=== PATIENT | male | born 1975 | race Caucasian/White ===

== ENCOUNTER 2019-10-15 21:01 | Emergency (ER) | payer SELFPAY ==
[2019-10-15] MEDS ORDERED: Ketorolac INJ* 30 MG/ML 1 ML VIAL IM ONE (21:21)
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
[2019-10-15] MEDS ORDERED: oxyCODONE/Acetamin 5/325 MG* TAB PO ONE (21:33)
[2019-10-16] MEDS ORDERED: Ibuprofen TAB* 800 MG PO ONE (02:42)
[2019-10-16] MEDS ORDERED: oxyCODONE TAB* 5 MG TAB PO ONE (03:18)
[2019-10-16 04:14] VITALS: BP 123/72
== END 2019-10-16 04:13 | disposition home or self-care (01) ==
LOC: ED 21:01
DX: M25.512 Pain in left shoulder (principal); M25.572 Pain in left ankle and joints of left foot
CPT/HCPCS: 96372; 99283; A9270-GY; J1885

== ENCOUNTER 2019-10-17 11:14 | Inpatient (IN) | payer BC ==
[2019-10-17] MEDS ORDERED: HYDROcodone/ACETAMIN 5-325 MG* 1 TAB PO ONE (11:28)
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
[2019-10-17 11:50] LABS: ABS Basophils 0.1 10^3/ul (0-0.2); ABS Eosinophils 0.1 10^3/ul (0-0.6); ABS Lymphocytes 1.3 10^3/ul (1.0-4.8); ABS Monocytes 0.7 10^3/ul (0-0.8); ABS Neutrophils 6.4 10^3/ul (1.5-7.7); Eosinophil % 1.4 %; Hematocrit 39 % (42-52); Hemoglobin 13.7 g/dL (14.0-18.0); Mean Corpuscular HGB Conc 35 g/dL (31-36); Mean Corpuscular Hemoglobin 33 pg (27-31); Mean Corpuscular Volume 93 fL (80-94); Mean Platelet Volume 9.5 fL (7.4-10.4); Platelet Count 151 10^3/uL (150-450); Red Blood Count 4.18 10^6 /uL (4.18-5.48); Red Cell Distribution Width 13 % (10-15); White Blood Count 8.7 10^3/uL (3.5-10.8)
[2019-10-17 12:04] LABS: ALT 28 U/L (7-52); AST 25 U/L (13-39); Albumin 4.2 g/dL (3.2-5.2); Albumin/Globulin Ratio 1.5 (1-3); Alkaline Phosphatase 25 U/L (34-104); Anion Gap 4 mmol/L (2-11); BUN/Creatinine Ratio 11.1 (8-20); Blood Urea Nitrogen 10 mg/dL (6-24); CO2 Carbon Dioxide 29 mmol/L (22-32); Calcium 9.2 mg/dL (8.6-10.3); Chloride 102 mmol/L (101-111); EGFR African American 112.5 (>60); Globulin 2.8 g/dL (2-4); Glucose 100 mg/dL (70-100); Potassium 4.1 mmol/L (3.5-5.0); Sodium 135 mmol/L (135-145)
[2019-10-17 12:41] LABS: HIV 4th Generation Nonreactive (Nonreactive)
[2019-10-17 12:54] LABS: Acetaminophen < 15 mcg/mL; Alcohol 10 mg/dL (<10); Salicylate < 2.50 mg/dL (<30)
[2019-10-17 13:10] LABS: TSH (Thyroid Stimulating Horm) 0.77 mcIU/mL (0.34-5.60)
[2019-10-17] MEDS ORDERED: Al Hydrox/Mg Hydrox/Simet LIQ* 30 ML UDC PO PRN (16:12)
[2019-10-17] MEDS: Acetaminophen TAB* 325 MG PO PRN (22:36)
[2019-10-18] MEDS: Vitamin THERAPEUTIC TAB PO SCH (08:34)
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
[2019-10-19] MEDS: Acetaminophen TAB* 325 MG PO PRN (05:55)
--- NOTE | 2019-10-19 10:02 | PN ---
Progress Note - Progress Note Date of Service: 10/19/19 Note: Please note that ankle fracture is surgical. Should remain NWB and immobilized in Cam Boot as Dr Mosley suggest and needs outpatient ortho follow up when released from .
[2019-10-19] MEDS ORDERED: Diazepam TAB(*) 5 MG PO ONE (10:14)
--- NOTE | 2019-10-19 13:35 | PN ---
Subjective - Subjective Date of Service: 10/19/19 Service Type: 59904 Hosp care 35 min high complexity Subjective: Solutions Specialist spoke with Dr Pascual regarding ortho consult. Patient completed CT scan and is indicated for surgical repair, likely 10/21 after edema is improved. Patient notified of above. He reports testicular pain and "orange" urine. UA wnl with exception of +urobilinogen. Patient's father, Holden Chowdary, phoned from [place] to give collateral. This was much similar to information he had given to admitting psychiatrist. He did report that Roni called a friend last week and told him he was going to jump into a gorge. Solutions Specialist updated him on patient's physical injuries and plan of care. During conversation with patient, he blames family members for all of his troubles. He speaks of them with derogatory names and that they "sent me to my grave." He states his is with someone else's baby and he blames her entirely for having an OOP against him. He goes on to describe the untoward effects of medications. He states that psychiatric medications: affected by ability to breathe and I had to choke myself to remind myself to breathe; decreased testosterone and turned bones brittle, causing fractures without injuries. He attributes his symptoms of mental illness to "the cloud from [place] over me for 2 months" when living in [facility]. He states that clozapine "destroyed my circadian rhythm" and that he was doing very well for 10 years on alternative therapies. Objective - General Observations Appearance: Malodorous, Unkempt Stature: Thin Posture: Other (See Comment) - lying down Eye Contact: Intense, Intermittent Behavior/Activity: Agitated - Interaction Observations Attitude Towards Examiner: Cooperative, Defensive, Hostile Stated Mood: Angry Affect: Restricted Speech Pattern/Tone: Pressured, Loud Volume Perception: WNL Thought Content: Paranoid, Grandiose Thought Process: Lethality: Paranoid Ideation Hallucination Type: Denies Delusion Type: Persecution, Grandeur - Cognitive Function Orientation: A&O x 4 Level of Consciousness: Alert Cognition: Impaired Attention/Concentration Estimated Intelligence: Normal Insight: Mostly Blames Others for Problems Judgment Within Normal Limits: No Ability to Make Reasonable Decisions: Serverely Impaired - Medication Compliance Cooperative with Inpatient Medication Regimen: Yes - Group Participation Participates in Group Activities: No Assessment - Assessment Merits Inpatient Hospitalization: For Immediate Safety, For Stabilization Inpatient DSM-V Dx: F25.0 Clinical Impression: 43yo wm with known history of schizophrenia and nonadherence to outpatient psychiatric treatment, who was living in [place] until filed OOP. Patient was brought to ED when family members called police due to concerns of his untreated mental illness. Two days prior, patient was seen in ED after sustaining a fall in a ravine thus fracturing an ankle fracture. Collateral information obtained denotes that may have been a suicide attempt. Patient merits hospitalization for immediate safety and stabilization. Plan - Plan Treatment Plan: Name: IRAM CHOWDARY Birthdate: 1975 [id number] continue acute intensive psychiatric treatment. L ankle CT obtained. Appreciate orthopaedic consult. Patient likely to have surgery on 10/22/19. add ibu, oxycodone/apap prn pain. add risperidone 1mg prn agitation. consider Invega Sustenna per patient consent. discharge planning to include family. Continued Medication Management: Start Medication Medications: Current Medications Acetaminophen (Tylenol Tab*) 650 mg PO Q4H PRN PRN Reason: for pain; or Temp >101 F Last Admin: 10/19/19 05:55 Dose: 650 mg Al Hydrox/Mg Hydrox/Simethicone (Maalox Plus*) 30 ml PO Q4H PRN PRN Reason: INDIGESTION Ibuprofen (Motrin Tab*) 600 mg PO Q6H PRN PRN Reason: PAIN - MILD Multivitamins (Theragran Tab*) 1 tab PO DAILY MIGUEL Last Admin: 10/18/19 08:34 Dose: Not Given - Discharge Plan Discharge Plan: Inpatient Hospitalization
[2019-10-19] MEDS: Vitamin THERAPEUTIC TAB PO SCH (13:46)
[2019-10-19] MEDS: Ibuprofen TAB* 600 MG PO PRN (13:51)
[2019-10-19] MEDS ORDERED: risperiDONE-M * 1 MG TAB.ORADIS PO PRN (15:05)
[2019-10-19 15:30] LABS: Urine Appearance Turbid; Urine Bilirubin Negative (Negative); Urine Blood Negative (Negative); Urine Color Yellow; Urine Glucose Negative (Negative); Urine Ketones Negative (Negative); Urine Nitrite Negative (Negative); Urine Protein Negative (Negative); Urine Specific Gravity 1.019 (1.010-1.030); Urine Urobilinogen Positive (Negative)
--- NOTE | 2019-10-19 17:07 | CONS ---
CONSULTATION REPORT: DATE OF CONSULT: 10/19/19 ATTENDING ORTHOPEDIC PROVIDER: Dr. Alfred Harkins. CHIEF COMPLAINT: Right ankle pilon fracture. HISTORY OF PRESENT ILLNESS: The patient is a 43-year-old male who presented to [facility] on first on 10/15/19 where he was identified to have a right ankle fracture with instruction to follow up with Orthopedics within 3 days. He returned to the emergency room on 10/17/19 due to lack of support as an outpatient and was admitted to [facility] service. Fracture occurred when the patient fell 20 feet down a ravine. On ER presentation he reported decreased range of motion in the right shoulder and right ankle due to pain. He also reported right posterior rib pain associated with the fall. Today his right ankle pain is well tolerated in CAM boot. No longer has right shoulder pain, continues to complain of right posterior rib pain and also "coccyx pain". He did not lose consciousness, hit his head, have shortness of breath, dizziness, chest pain, or abdominal pain. The patient has not had surgery in the past. He is unsure if he has any family members who have had anesthesia. He has not had a heart attack, stroke or blood clot. PAST MEDICAL HISTORY: Significant for untreated mental illness. The patient has not been taking his medications. PAST SURGICAL HISTORY: None. ALLERGIES: HALDOL, OLANZAPINE, PALIPERIDONE. SOCIAL HISTORY: The patient ambulates independently without an assistive device at baseline. He is and previously lived in a house with his , though for undisclosed reasons he has been living in his car. The patient is a former smoker. REVIEW OF SYSTEMS: General: Denies any fever, chills, or recent illness. HEENT: The patient denies any head trauma, headache, changes in vision. Cardiac : Denies any chest pain. No history of heart attack. Respiratory: No shortness of breath. No cough. GI: No nausea, vomiting, diarrhea or abdominal pain. : No dysuria. Musculo-skeletal: Positive for pain of the right lower extremity as well as right posterior ribs. Neuro: No decreased sensation in bilateral upper or lower extremities. PHYSICAL EXAM: Vital Signs: Temperature 98.8, pulse rate 78, respiratory rate 14, oxygen saturation 99%, and blood pressure 128/69. General: Well appearing , no acute distress. HEENT: Normocephalic, atraumatic. Extraocular movements are intact. Neck: No C-spine tenderness. Cardiac: S1, S2. Respiratory: Clear to auscultation bilaterally. Abdomen: Bowel sounds normoactive, nontender. No guarding. No rigidity. Musculoskeletal: Bilateral upper extremities and left lower extremity; skin envelope is intact. He has no tenderness to palpation, able to flex and extend at all joints without any pain. The patient reports right-sided back pain. He has no tenderness over the scapula. He does have tenderness over the ribs with no obvious step-off. Right lower extremity: Boot removed, the patient has significant blistering over the lateral aspect of the ankle with moderate to severe swelling and ecchymosis. Unable to wrinkle the skin about the ankle. he is able to flex and extend at the MTPs. Sensation is intact to light touch distally. Capillary refill less than 2 seconds distally. DIAGNOSTIC STUDIES/LAB DATA: White blood cell count 8.7, hemoglobin 13.7, hematocrit 39, platelets 151. Sodium 135, potassium 4.1, creatinine 0.90. CT scan of the right lower extremity demonstrates a pilon fracture of the right ankle. Right shoulder x-ray, no acute osseous injury. ASSESSMENT: Pilon fracture, right ankle. PLAN: The patient will be nonweightbearing. He will remain in Cam boot. He can use crutches to ambulate as needed though he should keep the extremity strictly elevated and iced as much as possible. Plan is for ORIF right pilon fracture on 10/22/[address] Alfred Harkins. Ordered coccyx/sacrum and CXR to eval for further injuries. GISELLE COX [id number]/[facility] #: [id number] [facility]PITAL CENTERHernesto
[2019-10-19 17:18] LABS: Urine Benzodiazepine Screen Presumptive Positive (None Detect); Urine Opiates Screen None Detected (None Detect)
[2019-10-19 19:30] LABS: Urine Buprenorphine Screen None Detected (None Detect); Urine Fentanyl Screen None Detected (None Detect); Urine Hydrocodone Screen None Detected (None Detect)
[2019-10-19] MEDS: oxyCODONE/Acetamin 5/325 MG* TAB PO PRN (22:59)
[2019-10-20] MEDS: Vitamin THERAPEUTIC TAB PO SCH (10:15)
[2019-10-20] MEDS: oxyCODONE/Acetamin 5/325 MG* TAB PO PRN ×2 (10:43→22:37)
--- NOTE | 2019-10-20 12:38 | PN ---
Progress Note - Progress Note Date of Service: 10/20/19 SOAP: Subjective: [The pt was seen this am sitting in bed. He state that his pain is well managed while being in the boot. The pt states that he has been up and about with crutches. He denies any chest pain, sob, nausea or vomiting. ] Objective: [General: pt is alert and oriented x3. NAD MSK, RLE: The pt is in a CAM walker boot. He does have pain at the lateral and medial malleolus. He can wiggle his toes. He does have 2 blood filled blisters present on the lateral side. He has diffuse bruising about the ankle. The pt has full sensation and we can wrinkle his skin. ] Vital Signs Temp 98.8 F 10/19/19 08:00 Pulse 78 10/19/19 08:00 Resp 15 10/20/19 11:23 BP 128/69 10/19/19 08:00 Pulse Ox 99 10/19/19 08:00 Assessment: [Right ankle pilon fracture ] Plan: [The pt will continue with NWB in the CAM boot He will continue to keep his ankle elevated Will speak with the provider to discus his s3 possible fracture - [facility]/2019]
[2019-10-20] MEDS: Docusate CAP* 100 MG PO PRN ×2 (13:08→17:38)
--- NOTE | 2019-10-20 13:46 | PN ---
Subjective - Subjective Date of Service: 10/20/19 Service Type: 49670 Hosp care 35 min high complexity Subjective: Per Ortho recommendations, development writer consulted with neurosurgeon, Dr Huerta. No surgical interventions, necessary. Patient may f/u with sports medicine in outpatient setting. Terminal Operations Manager received message from patient's father, Holden Quiros, and returned call to [phone]. Mr Quiros expressed concerns about patient being discharged without psychiatric stabilization. We discussed plan of care in the next few days and potential for pursuing Treatment Over Objection. He reported feeling much relief after discussion. Will continue with daily updates from development writer. Patient noted to ambulate about unit NWB on L foot, wearing CAM boot and utilizing crutches. At time of interview, pt lying in bed with leg elevated. Upon presentation, patient states "I'm glad you came in, I was just starting to panic." He states he is frustrated about lack of human contact because everyone he has called in the last 6 weeks isn't returning his calls. He speaks of various topics,places he has lived, disdain for [facility], and desire to live [place] own [place] (afterwhich he jokingly tells development writer "you're not invited"). Patient goes on to blame his mother and for sabotaging him and ruining his life. I gently inquire about him being overheard being verbally aggressive to his mother on the phone. He rants for some time about she and his needing to know why is so angry with them. He also states that his father isn't returning his calls. We discuss that his father is worried and afraid to talk to him when he is speaking angrily to everyone. By the end of the conversation, patient is calm and cooperative. Patient is encouraged to rest and stay hydrated, given water pitcher. Objective - General Observations Appearance: Unkempt Stature: Thin Posture: WNL Eye Contact: Avoidant Behavior/Activity: Agitated - Interaction Observations Attitude Towards Examiner: Cooperative, Defensive Stated Mood: Expansive, Angry Affect: Labile Speech Pattern/Tone: Rambling, Pressured Thought Process: Circumstantial, Over Inclusive Perception: WNL Thought Content: Paranoid, Grandiose Thought Process: Lethality: Paranoid Ideation Hallucination Type: Denies Delusion Type: Persecution, Grandeur - Cognitive Function Orientation: A&O x 4 Level of Consciousness: Alert Cognition: Impaired Attention/Concentration Estimated Intelligence: Normal Insight: Mostly Blames Others for Problems Judgment Within Normal Limits: No Ability to Make Reasonable Decisions: Serverely Impaired - Medication Compliance Cooperative with Inpatient Medication Regimen: Partial - Group Participation Participates in Group Activities: No Assessment - Assessment Merits Inpatient Hospitalization: For Immediate Safety, For Stabilization Inpatient DSM-V Dx: F25.0 Clinical Impression: 43yo wm with known history of schizophrenia and nonadherence to outpatient psychiatric treatment, who was living in [place] until filed OOP. Patient was brought to ED when family members called police due to concerns of his untreated mental illness. Two days prior, patient was seen in ED after sustaining a fall in a ra[place] thus fracturing an ankle fracture. Collateral information obtained denotes that may have been a suicide attempt. Patient merits hospitalization for immediate safety and stabilization. Plan - Plan Treatment Plan: Name: IRAM QUIROS Birthdate: 1975 [id number] continue acute intensive psychiatric treatment. Appreciate orthopaedic consult. Patient to have surgery on morning of 10/22/19, NPO after midnight prior to. Consult with neurosurgery due to S3 vertebral fx. No further recommendations. patient may follow up with sports medicine via outpatient. add laxative and stool softener prn constipation. continue R.I.C.E., ibu, oxycodone/apap prn pain. continue risperidone 1mg prn agitation. consider Invega Sustenna per patient consent. discharge planning to include family. Continued Medication Management: Consider Medication Medications: Current Medications Acetaminophen (Tylenol Tab*) 650 mg PO Q4H PRN PRN Reason: for pain; or Temp >101 F Last Admin: 10/19/19 05:55 Dose: 650 mg Al Hydrox/Mg Hydrox/Simethicone (Maalox Plus*) 30 ml PO Q4H PRN PRN Reason: INDIGESTION Docusate Sodium (Colace Cap*) 100 mg PO BID PRN PRN Reason: CONSTIPATION Ibuprofen (Motrin Tab*) 600 mg PO Q6H PRN PRN Reason: PAIN - MILD Last Admin: 10/19/19 13:51 Dose: 600 mg Multivitamins (Theragran Tab*) 1 tab PO DAILY MIGUEL Last Admin: 10/20/19 10:15 Dose: 1 tab Oxycodone/Acetaminophen (Percocet 5/325 Tab*) 1 tab PO Q8H PRN PRN Reason: PAIN - SEVERE Last Admin: 10/20/19 10:43 Dose: 1 tab Polyethylene Glycol/Electrolytes (Miralax (17 Gm Dose Rajesh)) 17 gm PO DAILY PRN PRN Reason: CONSTIPATION Risperidone (Risperdal-M Tab *) 1 mg PO BID PRN; Protocol PRN Reason: AGITATION/ANXIETY - Discharge Plan Discharge Plan: Inpatient Hospitalization
[2019-10-20] MEDS: Ibuprofen TAB* 600 MG PO PRN (17:09)
[2019-10-20] MEDS: Polyethylene Glycol 3350* 17 GM PACKET PO PRN (17:38)
[2019-10-21] MEDS: oxyCODONE/Acetamin 5/325 MG* TAB PO PRN ×2 (05:10→19:02)
[2019-10-21] MEDS: Ibuprofen TAB* 600 MG PO PRN ×2 (05:10→10:50)
[2019-10-21] MEDS: Polyethylene Glycol 3350* 17 GM PACKET PO PRN (10:49)
[2019-10-21] MEDS: Vitamin THERAPEUTIC TAB PO SCH (10:49)
[2019-10-21] MEDS: Docusate CAP* 100 MG PO PRN (10:49)
[2019-10-21] MEDS ORDERED: Buffered Lidocaine 1% SYRIN* 1 ML/SYRINGE INTRADERM ONE (10:54)
--- NOTE | 2019-10-21 11:25 | PN ---
Subjective - Subjective Date of Service: 10/21/19 Service Type: 64277 Hosp care 25 min moderate complexity Subjective: Patient lying in bed with R leg elevated and ice pack in place. He reports being encouraged by ortho team to remain off of leg and to keep elevated as much as possible to prepare for surgical repair tomorrow. We discuss possibility of use of unit tablet for entertainment. I will refer to Rec Therapy for parameters of use. Patient is pleasant upon approach, euthymic with bright affect. He states he had a good conversation with his father via phone. Patient states "I wish I had a home" in a jovial manner. He agrees to postpone discharge planning until after surgery. Objective - General Observations Appearance: Well Groomed Stature: Thin Posture: Other (See Comment) - lying down Eye Contact: Average Behavior/Activity: WNL - Interaction Observations Attitude Towards Examiner: Cooperative Stated Mood: Euthymic Affect: Bright Speech Pattern/Tone: Clear, Appropriate, Normal Volume Thought Process: Circumstantial Perception: WNL Thought Content: Paranoid Thought Process: Lethality: Paranoid Ideation Hallucination Type: Denies Delusion Type: Persecution, Grandeur - Cognitive Function Orientation: A&O x 4 Level of Consciousness: Alert Cognition: WNL Estimated Intelligence: Normal Insight: Mostly Blames Others for Problems Judgment Within Normal Limits: No Ability to Make Reasonable Decisions: Serverely Impaired - Medication Compliance Cooperative with Inpatient Medication Regimen: Partial - Group Participation Participates in Group Activities: Partial Assessment - Assessment Inpatient DSM-V Dx: F25.0 Clinical Impression: 43yo wm with known history of schizophrenia and nonadherence to outpatient psychiatric treatment, who was living in [place] until filed OOP. Patient was brought to ED when family members called police due to concerns of his untreated mental illness. Two days prior, patient was seen in ED after sustaining a fall in a [place] thus fracturing an ankle fracture. Collateral information obtained denotes that may have been a suicide attempt. Patient merits hospitalization for immediate safety and stabilization. Plan - Plan Treatment Plan: Name: IRAM QUIROS Birthdate: 1975 [id number] continue acute intensive psychiatric treatment. Appreciate orthopaedic consult. Patient to have surgery on morning of 10/22/19, NPO after midnight prior to. Consult with neurosurgery due to S3 vertebral fx. No further recommendations. patient may follow up with sports medicine via outpatient. add laxative and stool softener prn constipation. continue R.I.C.E., ibu, oxycodone/apap prn pain. continue risperidone 1mg prn agitation. consider Invega Sustenna per patient consent. discharge planning to include family. Continued Medication Management: Consider Medication Medications: Current Medications Acetaminophen (Tylenol Tab*) 650 mg PO Q4H PRN PRN Reason: for pain; or Temp >101 F Last Admin: 10/19/19 05:55 Dose: 650 mg Al Hydrox/Mg Hydrox/Simethicone (Maalox Plus*) 30 ml PO Q4H PRN PRN Reason: INDIGESTION Docusate Sodium (Colace Cap*) 100 mg PO BID PRN PRN Reason: CONSTIPATION Last Admin: 10/21/19 10:49 Dose: 100 mg Lactated Ringer's (Lactated Ringers 1000 Ml Bag*) 1,000 mls @ 125 mls/hr IV PER RATE MIGUEL Ibuprofen (Motrin Tab*) 600 mg PO Q6H PRN PRN Reason: PAIN - MILD Last Admin: 10/21/19 10:50 Dose: 600 mg Multivitamins (Theragran Tab*) 1 tab PO DAILY MIGUEL Last Admin: 10/21/19 10:49 Dose: 1 tab Oxycodone/Acetaminophen (Percocet 5/325 Tab*) 1 tab PO Q8H PRN PRN Reason: PAIN - SEVERE Last Admin: 10/21/19 05:10 Dose: 1 tab Polyethylene Glycol/Electrolytes (Miralax (17 Gm Dose Rajesh)) 17 gm PO DAILY PRN PRN Reason: CONSTIPATION Last Admin: 10/21/19 10:49 Dose: 17 gm Risperidone (Risperdal-M Tab *) 1 mg PO BID PRN; Protocol PRN Reason: AGITATION/ANXIETY - Discharge Plan Discharge Plan: Inpatient Hospitalization
--- NOTE | 2019-10-21 13:29 | PN ---
Progress Note - Progress Note Date of Service: 10/21/19 SOAP: Subjective: Pt seen at bedside today for evaluation of right leg fracture. States that he is doing ok, boot is too uncomfortable to wear and prefers nothing on leg while laying in bed while elevating. Denies pain at rest. Denies CP/SOB, f/c, n/v. Objective: Vital Signs: Temp Pulse Resp BP Pulse Ox 99.4 F 61 14 112/60 99 10/21/19 08:26 10/21/19 08:26 10/21/19 10:52 10/21/19 08:26 10/21/19 08:26 Gen: A&Ox3, NAD at rest laying in bed RLE: Large fracture blisters intact to posterolateral ankle. Moderate ecchymosis and swelling to ankle. +f/e at MTPs. N/V intact Assessment: Right ankle pilon fracture Plan: NPO after MN for ORIF right ankle tomorrow Strict elevation and ice as kita wrap not allowed
[2019-10-22] MEDS: oxyCODONE/Acetamin 5/325 MG* TAB PO PRN (04:37)
[2019-10-22] MEDS ORDERED: Lactated Ringers 1000 ML Bag* 1,000 ML IV SCH (06:00)
[2019-10-22] MEDS ORDERED: ceFAZolin 2 GM PREMIX in ORs 2 GM/50 ML BAG ONE (08:56)
[2019-10-22] MEDS ORDERED: Bupivacaine 0.5%* 50 ML MDV VIAL ONE (08:57)
[2019-10-22] MEDS: Vitamin THERAPEUTIC TAB PO SCH (09:01)
[2019-10-22 10:00] VITALS: BP 123/73
--- NOTE | 2019-10-22 11:33 | DS ---
DATE OF ADMISSION: 10/17/2019. DATE OF DISCHARGE: 10/22/2019. SUPERVISING PSYCHIATRIST: Dr. Albert Gómez* (dictated by DEVAUGHN Marquez) . DIAGNOSES: Schizophrenia, paranoid type; cannabis use disorder. CONDITION ON DISCHARGE: Guarded. The patient is being discharged to Surgical Services to complete ORIF of the right ankle with the expectation he will be readmitted to the Behavioral Services Unit on 9.39 status after completion of surgery. The patient is discharged to Surgical Services. MENTAL STATUS EXAM: Jeison is a 43-year-old, white male, disheveled, thin- framed. He has alternately avoidant or intense eye contact. He presents as guarded, irritable, and superficially cooperative. He is minimally cooperative with staff in regards to preparation for surgery with de-escalation. By psychiatric nursing staff, he is cooperative and agreeable. Thought content is positive for paranoid ideations. Thought process is circumstantial and disorganized. He verbalizes paranoid and persecutory delusions. Insight and judgment are limited. Impulse control is poor. He is alert and oriented times three. Concentration is poor. Attention and memory are fair. Fund of knowledge is limited. Intelligence is estimated to be in normal average range. DISCHARGE INSTRUCTIONS GIVEN TO THE PATIENT: A. Medications: He will resume on medications per Surgical team, primarily for pain control. The patient is afforded Risperidone prn for agitation, but has been refusing this. B. Diet: NPO currently. C. Activity: Nonweightbearing right leg. Encouraged to remain in hospital bed with leg elevated. Tobacco cessation is provided to the patient. Pending labs per Surgical team. D. Follow-care: The patient will return to the Adult Behavioral Services Unit on involuntary status. E. Substance use follow-up: Not applicable. HOSPITAL COURSE - PART A: Reason for admission: The patient presented to the emergency department on 10/17/2019 due to family concerns about his safety. The family had contacted 911 due to the patient's inability to care for himself and making comments to others about suicidal ideation. On October 14, the patient presented to the emergency department after falling in a ravine and sustaining multiple physical injuries. He reported that he was defecating in a gorge and fell from a height. He was discharged from the ED after receiving a CAM boot. When he returned on the , he had been found on the [facility] wandering about. Collateral information obtained from the family that the patient had a diagnosis of paranoid schizophrenia. He had been doing well on long-acting injectable Invega Sustenna until stopping it approximately five to six months ago where he decompensated considerably. The patient has since been aggressive towards his and she has an order of protection. He and his were living in [place] and the patient reached out to family members who were not willing to support him financially without his agreement to be on medications. He now takes this as being abandoned by his family and blames them for all of his problems. According to his father, he is very masterful at covering up his symptoms. He also had reached out to a friend on the day of his fall in the ravine and reportedly had suicidal ideation and a plan to jump into a gorge. Upon presentation on the day of admission to the Psychiatric Unit, he verbalized ideas of reference, paranoid and persecutory delusions. He told the admitting psychiatrist that because he is Zoroastrian, he had to leave [place] due to the K targeting him. He also reported that his father and mother are trying to control him and will not help him unless he takes medications. HOSPITAL COURSE - PART B: Psychiatric treatment rendered: The patient was admitted to the Adult Behavioral Services Unit on involuntary status. Code status was full. He was placed on 15 minute checks for safety. We reached out to Ortho and obtained a CT of his right ankle due to the severity of multiple fractures. He was deemed appropriate for emergency surgery. The patient was afforded pain medication and prophylaxis for constipation. He was afforded Risperidone prn for agitation, but did not accept this. He is adamantly opposed to psychiatric medications and has various delusions about medication treatment history as well as impaired insight into psychiatric diagnosis. Ortho obtained a sacrum and coccyx x-ray which denoted mild cortical abnormality near S3. Tv News Director was encouraged to reach out to Neurosurgery which I did and discussed with the office of Dr. Huerta who indicated that surgery was not indicated. He was recommended to follow-up with Sports Medicine after discharge. The patient's current insurance is O of [email or web address] ; therefore, any services in [place] are not covered unless it is an emergency. The patient was notified of the above and recommendation to remain hospitalized on involuntary status until outpatient services can be arranged post surgery and post psychiatric stabilization. We have been in contact with his father per patient consent who is very concerned about his treatment. The patient has a recent history of brief psychiatric hospitalization in [place], [place] I believe. He was admitted for a 72 hour hold and discharge when he was readmitted to [facility] at the beginning of this month. He presented well in a hearing and was deemed appropriate for discharge by the local court. We discussed at length the process of involuntary admission in this state and pursuing treatment over objection to which the father is in agreement with. During conversation with the patient, he is calm and cooperative, especially when discussing current medical recommendations. When we discuss his psychiatric history, he is quickly defensive, irritable, and has much derogatory statements about his family and for sabotaging him and ruining his life. He is overheard being verbally aggressive to his mother on the phone. He rants for some time that his mother and are needing to know why he is so angry with them. He has poor insight into his psychiatric history. He denies previous suicide attempts that have been well-documented. He reports that various things have caused mental instability, including the mercury clouds from [place] after 04[place]08. The night before surgery, the patient was agitated, demanding to be discharged and this was after we had already discussed that it was in his best interest for him to remain psychiatrically hospitalized, not only for safety, but for healthcare coverage. On the morning prior to discharging to Surgery, he was irritable, agitated and balking at going to surgery. He demanded to be discharged after surgery. Due to his recent history, it is imperative that he return to the Behavioral Services Unit on involuntary status for his own safety. We are looking forward to collaboration with the Ortho team after his surgery and post anesthesia care. DEVAUGHN MARQUEZ [id number]/CPS #: [id number] SHERRELL
== END 2019-10-22 08:45 | disposition short-term general hospital (02) | DRG 750 ==
LOC: ED 11:14 → BSU 16:12 → ED 17:09
PROVIDERS: ADMIT Psychiatry & Neurology Psychiatry; ATTEND Psychiatry & Neurology Psychiatry
DX: F20.0 Paranoid schizophrenia (principal); F12.90 Cannabis use, unspecified, uncomplicated; S82.871A Displaced pilon fracture of right tibia, initial encounter for closed fracture; S70.01XA Contusion of right hip, initial encounter; S40.011A Contusion of right shoulder, initial encounter; W17.89XA Other fall from one level to another, initial encounter; Y92.89 Other specified places as the place of occurrence of the external cause; Z81.8 Family history of other mental and behavioral disorders; Z81.1 Family history of alcohol abuse and dependence; Z91.14 Patient's other noncompliance with medication regimen; Z88.8 Allergy status to other drugs, medicaments and biological substances; Z87.891 Personal history of nicotine dependence
CPT/HCPCS: 36415; 71046; 72220; 80053; 80307; 80320; 80329; 81003; 84443; 85025; 87389; 93005; 99222; 99232; 99233; 99238; 99284; A9270-GY; G0480; J0690; J3490

== ENCOUNTER 2019-10-22 08:55 | Day surgery (SDC) | payer BC ==
[2019-10-22] MEDS ORDERED: Propofol* 10 MG/ML 20 ML BTL ONE (09:33)
[2019-10-22] MEDS ORDERED: Succinylcholine* 20 MG/ML 10 ML VIAL ONE (09:33)
[2019-10-22] MEDS ORDERED: Glycopyrrolate IV* 0.2 MG/ML 1 ML VIAL ONE (09:33)
[2019-10-22] MEDS ORDERED: fentaNYL* 50 MCG/ML 2 ML VIAL (100 MCG VIAL) ONE ×3 (09:34→12:13)
[2019-10-22] MEDS ORDERED: Rocuronium* 10 MG/ML VIAL ONE ×2 (09:35→10:20)
[2019-10-22] MEDS ORDERED: Acetaminophen IV 1GM/100ML * 1,000 MG/100 ML VIAL IVPB ONE (09:57)
[2019-10-22] MEDS ORDERED: Naloxone* 0.4 MG/ML 1 ML VIAL IV PRN (09:57)
[2019-10-22] MEDS ORDERED: Ondansetron INJ* 2 MG/ML VIAL IV PRN (09:57)
[2019-10-22] MEDS ORDERED: Ondansetron INJ* 2 MG/ML VIAL ONE (10:41)
[2019-10-22] MEDS ORDERED: Dexamethasone IV* 4 MG/ML 1 ML (4 MG) ONE (10:41)
[2019-10-22] MEDS ORDERED: Sugammadex * 200 MG/2 ML VIAL IV PUSH ONE (11:07)
[2019-10-22] MEDS: fentaNYL* 50 MCG/ML 2 ML VIAL (100 MCG VIAL) IV PRN ×5 (11:49→12:14)
[2019-10-22] MEDS ORDERED: HYDROmorphone INJ1* 1 MG/ML SYRINGE ONE ×2 (12:18→12:53)
[2019-10-22] MEDS: HYDROmorphone INJ1* 1 MG/ML SYRINGE IV PRN ×2 (12:19→12:30)
--- NOTE | 2019-10-22 12:19 | OP ---
Operative Report - Blank - Operative Report Date of Operation: 10/22/19 Note: PATIENT: Jeison Chowdary DATE OF : 1975 DATE OF SURGERY: 10/22/2019 SURGEON: Alfred Harkins MD DYNAMITE RECLAIMER: GISELLE Randall, whos assistance was necessary for positioning, retraction, help with instrumentation, and closure. ANESTHESIOLOGIST: Dr. Carpio PREOPERATIVE DIAGNOSIS: Closed, right, displaced pilon fracture with intra- articular loose bodies POSTOPERATIVE DIAGNOSIS: Closed, right, displaced pilon fracture with intra- articular loose bodies and 2 osteochondral lesions of the talus OPERATION: 1. Right pilon fracture open reduction and internal fixation 2. Removal of loose bodies from right ankle joint 3. Microfracture of osteochondral lesions of the talus ANESTHESIA: General IMPLANTS: Arthrex plates and screws TOURNIQUET TIME: Less than 2 hours with a well-padded thigh tourniquet at 250mmHg SPECIMENS: none ESTIMATED BLOOD LOSS: minimal COMPLICATIONS: none STATUS: Stable from the operating room to the recovery room and then home. INDICATIONS FOR PROCEDURE: Jeison fell into a ravine, sustaining the above injury. Both operative and non operative treatment alternatives were reviewed. Further, the nature and risks of surgery were reviewed in careful detail, in the office as well as the pre- operative holding area. Our discussions regarding the risks of surgery included , but were not limited to, infection, wound problems, nerve injury, neuroma, RSD , persistent symptoms, blood clot, nonunion, malunion, post-traumatic arthritis , persistent pain, hardware failure, failure of the surgery, and even the remote chance of catastrophic complication. DESCRIPTION OF PROCEDURE: The patient was seen in the preoperative holding unit and informed written consent was obtained. The appropriate extremity was marked. The patient was then brought to the operating room and carefully positioned on the operating room table. Anesthesia was induced. All bony prominences were padded with great care. A well-padded thigh tourniquet was placed. A chlorhexidine based pre- scrub was performed followed by a chloraprep prep and drape in standard sterile fashion. A surgical safety pause was then conducted in which we confirmed the appropriate patient, extremity, planned procedure, availability of equipment, indication and administration of prophylactic antibiotics, and DVT prophylaxis in the form of a compression boot on the non-surgical extremity. I began with Esmarch exsanguination of the limb and inflated the tourniquet. I made a longitudinal incision over the anteromedial ankle, medial to the tibialis anterior tendon. Dissection was carried down to the level of the periosteum and bone. I then made a flap medially to expose the medial malleolus fracture. It was vertically oriented. Her removed fracture hematoma and reduced the fracture with a pointed reduction clamp. I then placed a one third semitubular plate in a buttress fashion. This was secured to the bone with screws. The pointed reduction clamp was removed and the reduction was maintained. Fluoroscopy was used. I then made a flap laterally to expose the anterior aspect of the ankle joint. The fractures were windowed open and fracture hematoma was removed. There was extensive comminution and some of the small comminuted pieces were excised. This included some small, free pieces of articular cartilage. This provided excellent visualization of the joint. There were multiple loose bodies in the joint, which were removed. There were 2 large osteochondral lesions on the talus. One on the lateral third of the talar dome, more posteriorly. The second was at the lateral talar dome shoulder more anteriorly. I used a 0.045 K wire to perform microfractures of both of these lesions. I then reduced the main anterior fracture piece while also aligning some of the smaller impacted pieces down to restore the articular surface. This took some time to get all of the pieces lined up. These were held provisionally with multiple K wires. I then placed a one third semitubular plate along the anterior distal tibia and secured this to the bone with screws. The K wires were removed and the fractures maintained reduction. Fluoroscopy was used throughout this part as well. I then worked my way more laterally to expose the main anterolateral fracture of the distal tibia. Again, fracture hematoma and small pieces of comminution were excised. This piece was then reduced with a large pointed reduction clamp. I placed one 4.0 mm cannulated screw with a washer percutaneously. I then placed a one third semitubular plate in a buttressing fashion and secured this to the bone with screws. The provisional fixation was removed and this maintained reduction. Final fluoroscopic images were then obtained showing an adequate reduction and placement of the hardware. The wound was then copiously irrigated and closed in a layered fashion utilizing 0 Vicryl, 3-0 Monocryl, and skin elvis. The lateral percutaneous incision was closed with 3-0 nylon. A sterile dressing was applied followed by a splint with the ankle at neutral. The patient was then awakened from anesthesia and transferred to the recovery room in stable condition. There were no complications. All needle and sponge counts were correct at the end of the case. ATTESTATION: I attest I was present and scrubbed and performed the critical portions of the procedure myself. POSTOPERATIVE PLAN: The postop plan is for [id number] for an anticipated duration of 8 weeks. Follow-up will be in 2 weeks. At that time we will likely transition into a [id number] short leg cast. We will utilize aspirin for DVT prophylaxis.
[2019-10-22 13:03] VITALS: BP 143/85
== END 2019-10-22 13:05 ==
LOC: OR 08:55
PROVIDERS: ATTEND Orthopaedic Surgery
DX: S82.871A Displaced pilon fracture of right tibia, initial encounter for closed fracture (principal); M24.071 Loose body in right ankle; M89.771 Major osseous defect, right ankle and foot; W17.2XXA Fall into hole, initial encounter; Y92.89 Other specified places as the place of occurrence of the external cause; Z87.891 Personal history of nicotine dependence; F20.0 Paranoid schizophrenia; Z59.0 Homelessness
CPT/HCPCS: 76000; C1713; C1776; J0330; J1100; J1170; J2405; J2704; J3010

== ENCOUNTER 2019-10-22 11:41 | Inpatient (IN) | payer BC ==
[~2019-10-22 11:41] MED LIST: Diazepam TAB(*) 5 MG ONE
[2019-10-22] MEDS ORDERED: Al Hydrox/Mg Hydrox/Simet LIQ* 30 ML UDC PO PRN (11:45)
[2019-10-22] MEDS ORDERED: chlorproMAZINE TAB* 100 MG PO PRN (11:49)
[2019-10-22] MEDS: oxyCODONE TAB* 5 MG TAB PO PRN ×2 (14:05→20:15)
[2019-10-22] MEDS: Cephalexin CAP* 500 MG PO SCH ×2 (14:05→20:13)
[2019-10-22] MEDS: Ibuprofen TAB* 600 MG PO PRN ×2 (14:05→20:15)
[2019-10-22] MEDS: Aspirin TAB* 325 MG PO SCH (14:05)
[2019-10-22] MEDS: Acetaminophen TAB* 325 MG PO PRN (19:33)
[2019-10-22] MEDS: Docusate CAP* 100 MG PO SCH (20:13)
[2019-10-22] MEDS: risperiDONE-M * 1 MG TAB.ORADIS PO SCH (20:21)
[2019-10-23] MEDS: Acetaminophen TAB* 325 MG PO PRN ×5 (00:28→21:46)
[2019-10-23] MEDS: Nicotine Patch Removal NOTE FOLLOW UP SCH ×2 (01:40→21:10)
[2019-10-23] MEDS: oxyCODONE TAB* 5 MG TAB PO PRN ×4 (02:55→17:01)
[2019-10-23] MEDS: Ibuprofen TAB* 600 MG PO PRN ×3 (02:56→15:49)
[2019-10-23] MEDS: Docusate CAP* 100 MG PO SCH ×2 (09:35→21:45)
[2019-10-23] MEDS: risperiDONE-M * 1 MG TAB.ORADIS PO SCH ×3 (09:35→21:43)
[2019-10-23] MEDS: Cephalexin CAP* 500 MG PO SCH ×3 (09:35→21:45)
[2019-10-23] MEDS: Nicotine PATCH 14 MG/24 HR* PATCH TRANSDERM SCH ×2 (09:35→09:46)
[2019-10-23] MEDS: Aspirin TAB* 325 MG PO SCH (09:35)
[2019-10-23] MEDS: Vitamin THERAPEUTIC TAB PO SCH (09:35)
--- NOTE | 2019-10-23 09:52 | PN ---
Progress Note - Progress Note Date of Service: 10/23/19 SOAP: Subjective: [The pt was seen this morning sitting up in bed. He states that he is doing well. Pain is well under control. He is getting ready to get up for the day. He denies any chest pain, SOB, nausea or vomiting. ] Objective: [General: pt is alert and oriented x3. NAD MSK, RLE: Dressing is c/d/i. exposed toes have bruising in them. Well perfused with less than 2 second cap refill in all toes. He is able to wiggle toes slightly, has full sensation. Exposed calf is soft and non tender. ] Vital Signs Temp 99.2 F 10/23/19 08:00 Pulse 67 10/23/19 08:00 Resp 14 10/23/19 08:00 BP 115/61 10/23/19 08:00 Pulse Ox 99 10/23/19 08:00 Intake & Output 10/22/19 10/23/19 10/23/19 18:59 06:59 18:59 Weight 140 lb Assessment: [POD 1 : Right pilon fracture ORIF ] Plan: [Continue with pain medication on an as needed basis NWB RLE - crutches to walk Follow up in 2 weeks with orthopedics will continue to follow while in house. ]
[2019-10-23] MEDS: Polyethylene Glycol 3350* 17 GM PACKET PO PRN (11:03)
--- NOTE | 2019-10-23 11:34 | PN ---
Subjective - Subjective Date of Service: 10/23/19 Service Type: 86248 Hosp care 25 min moderate complexity Subjective: Magazine Publisher returned call to patient's father, Holden, and gave update on post-op and psychiatric treatment plan. Patient is adhering to post-op directions (NWB on RLE with use of crutches to ambulate) and utilizing prn medications for pain. He refused risperidone citing it causes "low testosterone" for him. He has been guarded in regards to communication with his mother and expressing psychotic symptomology. Patient avoidant of proposal lead writer upon approach. Objective - General Observations Appearance: Unkempt Stature: Thin Posture: Slumped Eye Contact: Avoidant Behavior/Activity: Impulsive - Interaction Observations Attitude Towards Examiner: Dismissive Stated Mood: Euthymic, Irritable Affect: Bright Speech Pattern/Tone: Normal Volume, Excessive, Pressured Thought Process: Circumstantial Perception: WNL Thought Content: Paranoid Thought Process: Lethality: Paranoid Ideation Hallucination Type: Denies Delusion Type: Persecution, Grandeur - Cognitive Function Orientation: A&O x 4 Level of Consciousness: Alert Cognition: Impaired Attention/Concentration Estimated Intelligence: Normal Insight: Mostly Blames Others for Problems Judgment Within Normal Limits: No Ability to Make Reasonable Decisions: Serverely Impaired - Medication Compliance Cooperative with Inpatient Medication Regimen: No - Group Participation Participates in Group Activities: No Assessment - Assessment Merits Inpatient Hospitalization: For Immediate Safety, For Stabilization, Pending Safe DC Plan Inpatient DSM-V Dx: F20.0 Clinical Impression: 43yo wm with known history of schizophrenia and nonadherence to outpatient psychiatric treatment, who was living in [place] until filed OOP. Patient was brought to ED when family members called police due to concerns of his untreated mental illness. Two days prior, patient was seen in ED after sustaining a fall in a ravine thus fracturing an ankle fracture, requiring surgical intervention. Collateral information obtained denotes that may have been a suicide attempt. Patient was discharged to surgical services for R ankle ORIF on 10/22/19 then readmitted to [facility] on emergency status the same day. Patient merits hospitalization for immediate safety and stabilization. Plan - Plan Treatment Plan: Name: IRAM QUIROS Birthdate: 1975 [id number] continue acute intensive psychiatric treatment. Constant observation while in room due to need for kita bandage. may have staff pass per RN discretion. continue current medications. continue post-op directions per ortho. may consider pursuing Treatment Over Objection. Continued Medication Management: Start Medication Medications: Current Medications Acetaminophen (Tylenol Tab*) 650 mg PO Q4H PRN PRN Reason: for pain; or Temp >101 F Last Admin: 10/23/19 10:59 Dose: 650 mg Al Hydrox/Mg Hydrox/Simethicone (Maalox Plus*) 30 ml PO Q4H PRN PRN Reason: INDIGESTION Aspirin (Aspirin Tab*) 325 mg PO DAILY [facility] Last Admin: 10/23/19 09:35 Dose: 325 mg Cephalexin HCl (Keflex Cap*) 500 mg PO TID [facility] Stop: 10/27/19 13:59 Last Admin: 10/23/19 09:35 Dose: 500 mg Chlorpromazine HCl (Thorazine Tab*) 100 mg PO Q6H PRN PRN Reason: agitation/anxiety Docusate Sodium (Colace Cap*) 100 mg PO BID [facility] Last Admin: 10/23/19 09:35 Dose: 100 mg Hydroxyzine HCl (Atarax Tab*) 50 mg PO Q4H PRN PRN Reason: anxiety Ibuprofen (Motrin Tab*) 600 mg PO Q6H PRN PRN Reason: PAIN - MILD Last Admin: 10/23/19 09:46 Dose: 600 mg Multivitamins (Theragran Tab*) 1 tab PO DAILY [facility] Last Admin: 10/23/19 09:35 Dose: 1 tab Nicotine (Nicotine Patch 14 Mg/24 Hr*) 1 patch TRANSDERM DAILY [facility] Last Admin: 10/23/19 09:46 Dose: Not Given Nicotine Polacrilex (Nicotine Gum*) 2 mg PO Q2H PRN PRN Reason: CRAVING Oxycodone HCl (Roxycodone Tab*) 5 mg PO Q6H PRN PRN Reason: PAIN - SEVERE Last Admin: 10/23/19 11:00 Dose: 5 mg Pharmacy Profile Note (Nicotine Patch Removal Note*) 1 note FOLLOW UP 2100 [facility] Last Admin: 10/23/19 01:40 Dose: Not Given Polyethylene Glycol/Electrolytes (Miralax (17 Gm Dose Rajesh)) 17 gm PO DAILY PRN PRN Reason: CONSTIPATION Last Admin: 10/23/19 11:03 Dose: 17 gm Risperidone (Risperdal-M Tab *) 1 mg PO BID [facility]; Protocol Last Admin: 10/23/19 09:46 Dose: Not Given - Discharge Plan Discharge Plan: Inpatient Hospitalization
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
[2019-10-24] MEDS: Ibuprofen TAB* 600 MG PO PRN ×2 (03:45→13:22)
[2019-10-24] MEDS: oxyCODONE TAB* 5 MG TAB PO PRN ×3 (03:45→18:37)
[2019-10-24] MEDS: risperiDONE-M * 1 MG TAB.ORADIS PO SCH ×2 (07:55→21:00)
[2019-10-24] MEDS: Vitamin THERAPEUTIC TAB PO SCH (07:56)
[2019-10-24] MEDS: Cephalexin CAP* 500 MG PO SCH ×3 (07:56→20:58)
[2019-10-24] MEDS: Aspirin TAB* 325 MG PO SCH (07:56)
[2019-10-24] MEDS: Nicotine PATCH 14 MG/24 HR* PATCH TRANSDERM SCH (07:56)
[2019-10-24] MEDS: Docusate CAP* 100 MG PO SCH ×2 (07:56→20:58)
[2019-10-24 07:58] LABS: HDL Cholesterol 46.8 mg/dL
[2019-10-24] MEDS: Polyethylene Glycol 3350* 17 GM PACKET PO PRN (11:19)
[2019-10-24] MEDS: Acetaminophen TAB* 325 MG PO PRN (16:58)
--- NOTE | 2019-10-24 17:39 | PN ---
Subjective - Subjective Service Type: 65978 Hosp care 25 min moderate complexity Subjective: The patient is a 43year male with history of Schizophrenia who recently sustained fracture of the right ankle possibly in a suicide attempt. He is seen today for medication management and follow up. He described his mood as improving . He denied hopelessness and worthlessness. He denied current suicidal or homicidal ideation. He is observed to be laying comfortably on the bed without pain. He is cooperative with evaluation. No evidence of gross psychosis or delusion. He related well with the technical document writer. He reported good appetite and denied constipation. He compliant with medications. No behavioral problems. He denied side effects to his current medications. No mood swings or racing thoughts. Objective - General Observations Appearance: Neat Appears Stated Age: Yes Stature: WNL Posture: WNL Behavior/Activity: WNL - Interaction Observations Attitude Towards Examiner: Cooperative Stated Mood: Euthymic Affect: Full Speech Pattern/Tone: Clear Thought Process: Coherent Perception: WNL Thought Content: WNL Hallucination Type: None Delusion Type: None - Cognitive Function Orientation: A&O x 4 Level of Consciousness: Awake Cognition: WNL Estimated Intelligence: Normal Insight: Mostly Blames Others for Problems Judgment Within Normal Limits: No Ability to Make Reasonable Decisions: Mildly Impaired - Medication Compliance Cooperative with Inpatient Medication Regimen: Yes - Group Participation Participates in Group Activities: No - Elaboration on Positive Findings Positive MSE Findings: He denied current suicidal or homicidal ideations. Assessment - Assessment Inpatient DSM-V Dx: F20.0 Clinical Impression: 43yo wm with known history of schizophrenia and nonadherence to outpatient psychiatric treatment, who was living in [place] until filed OOP. Patient was brought to ED when family members called police due to concerns of his untreated mental illness. Two days prior, patient was seen in ED after sustaining a fall in a ravine thus fracturing an ankle fracture, requiring surgical intervention. Collateral information obtained denotes that may have been a suicide attempt. Patient was discharged to surgical services for R ankle ORIF on 10/22/19 then readmitted to BSU on emergency status the same day. Patient merits hospitalization for immediate safety and stabilization. Plan - Plan Treatment Plan: Name: IRAM QUIROS Birthdate: 1975 [id number] continue acute intensive psychiatric treatment. Constant observation while in room due to need for kita bandage. may have staff pass per RN discretion. continue current medications. continue post-op directions per ortho. may consider pursuing Treatment Over Objection. Medications: Current Medications Acetaminophen (Tylenol Tab*) 650 mg PO Q4H PRN PRN Reason: for pain; or Temp >101 F Last Admin: 10/24/19 16:58 Dose: 650 mg Al Hydrox/Mg Hydrox/Simethicone (Maalox Plus*) 30 ml PO Q4H PRN PRN Reason: INDIGESTION Aspirin (Aspirin Tab*) 325 mg PO DAILY [facility] Last Admin: 10/24/19 07:56 Dose: 325 mg Cephalexin HCl (Keflex Cap*) 500 mg PO TID [facility] Stop: 10/27/19 13:59 Last Admin: 10/24/19 13:22 Dose: 500 mg Chlorpromazine HCl (Thorazine Tab*) 100 mg PO Q6H PRN PRN Reason: agitation/anxiety Docusate Sodium (Colace Cap*) 100 mg PO BID [facility] Last Admin: 10/24/19 07:56 Dose: 100 mg Hydroxyzine HCl (Atarax Tab*) 50 mg PO Q4H PRN PRN Reason: anxiety Ibuprofen (Motrin Tab*) 600 mg PO Q6H PRN PRN Reason: PAIN - MILD Last Admin: 10/24/19 13:22 Dose: 600 mg Multivitamins (Theragran Tab*) 1 tab PO DAILY [facility] Last Admin: 10/24/19 07:56 Dose: 1 tab Nicotine (Nicotine Patch 14 Mg/24 Hr*) 1 patch TRANSDERM DAILY [facility] Last Admin: 10/24/19 07:56 Dose: Not Given Nicotine Polacrilex (Nicotine Gum*) 2 mg PO Q2H PRN PRN Reason: CRAVING Oxycodone HCl (Roxycodone Tab*) 5 mg PO Q6H PRN PRN Reason: PAIN - SEVERE Last Admin: 10/24/19 11:18 Dose: 5 mg Pharmacy Profile Note (Nicotine Patch Removal Note*) 1 note FOLLOW UP 2100 [facility] Last Admin: 10/23/19 21:10 Dose: Not Given Polyethylene Glycol/Electrolytes (Miralax (17 Gm Dose Rajesh)) 17 gm PO DAILY PRN PRN Reason: CONSTIPATION Last Admin: 10/24/19 11:19 Dose: 17 gm Risperidone (Risperdal-M Tab *) 1 mg PO BID [facility]; Protocol Last Admin: 10/24/19 07:55 Dose: Not Given
[2019-10-24] MEDS: Nicotine Patch Removal NOTE FOLLOW UP SCH (22:46)
[2019-10-25] MEDS: oxyCODONE TAB* 5 MG TAB PO PRN ×4 (00:40→23:30)
[2019-10-25] MEDS: Ibuprofen TAB* 600 MG PO PRN ×4 (00:40→23:30)
[2019-10-25] MEDS: Nicotine PATCH 14 MG/24 HR* PATCH TRANSDERM SCH (08:39)
[2019-10-25] MEDS: Aspirin TAB* 325 MG PO SCH (10:34)
[2019-10-25] MEDS: Cephalexin CAP* 500 MG PO SCH ×3 (10:35→21:29)
[2019-10-25] MEDS: Vitamin THERAPEUTIC TAB PO SCH (10:35)
[2019-10-25] MEDS: risperiDONE-M * 1 MG TAB.ORADIS PO SCH ×2 (10:35→21:29)
[2019-10-25] MEDS: Docusate CAP* 100 MG PO SCH ×2 (10:35→21:29)
--- NOTE | 2019-10-25 10:39 | PN ---
Progress Note - Progress Note Date of Service: 10/25/19 SOAP: Subjective: POD #3 Right ankle pilon fracture ORIF. Doing well, pain controlled. Compliant with NWB per staff. Denies CP/SOB, f/c, n/v or calf pain. Objective: Vital Signs: Temp Pulse Resp BP Pulse Ox 99.1 F 58 14 154/57 99 10/25/19 08:00 10/25/19 08:00 10/25/19 08:00 10/25/19 08:00 10/25/19 08:00 Gen: A&Ox3, NAD at rest laying in bed RLE: Splint C/D/I. +f/e at MTPs, sensation intact with brisk cap refill Labs: Laboratory Results - last 24 hr 10/24/19 07:33 Hemoglobin A1c 4.9 Assessment: POD #3 Right ankle pilon fracture ORIF Plan: Cont NWB RLE with crutches, elevate frequently Will continue to follow while hospitalized, will need staple removal 10-14 days post and short leg cast applied Otherwise can f/u as outpt when d/c
[2019-10-25] MEDS: Acetaminophen TAB* 325 MG PO PRN ×2 (12:56→21:29)
[2019-10-26] MEDS: Nicotine Patch Removal NOTE FOLLOW UP SCH (00:59)
[2019-10-26] MEDS: Ibuprofen TAB* 600 MG PO PRN ×3 (09:03→19:46)
[2019-10-26] MEDS: Aspirin TAB* 325 MG PO SCH (09:04)
[2019-10-26] MEDS: Docusate CAP* 100 MG PO SCH ×2 (09:04→20:35)
[2019-10-26] MEDS: Cephalexin CAP* 500 MG PO SCH ×3 (09:04→20:34)
[2019-10-26] MEDS: Vitamin THERAPEUTIC TAB PO SCH (09:04)
[2019-10-26] MEDS: risperiDONE-M * 1 MG TAB.ORADIS PO SCH ×2 (09:05→20:35)
[2019-10-26] MEDS: Nicotine PATCH 14 MG/24 HR* PATCH TRANSDERM SCH (10:08)
[2019-10-26] MEDS: Acetaminophen TAB* 325 MG PO PRN ×2 (10:09→15:24)
--- NOTE | 2019-10-26 10:09 | PN ---
Progress Note - Progress Note Date of Service: 10/26/19 SOAP: Subjective: POD #4 Right ankle pilon fracture ORIF. Doing well, pain controlled. Compliant with NWB per staff. Denies CP/SOB, f/c, n/v or calf pain. Objective: Gen: A&Ox3, NAD RLE: Splint C/D/I. +f/e at MTPs, sensation intact with brisk cap refill Vital Signs Temp 99.5 F 10/26/19 08:00 Pulse 53 10/26/19 08:00 Resp 16 10/26/19 08:00 BP 104/57 10/26/19 08:00 Pulse Ox 98 10/26/19 08:00 Assessment: POD #4 Right ankle pilon fracture ORIF Plan: Cont NWB RLE with crutches, elevate frequently Will continue to follow while hospitalized, will need staple removal 10-14 days post and short leg cast applied Otherwise can f/u as outpt when d/c
--- NOTE | 2019-10-26 10:59 | PN ---
Subjective - Subjective Date of Service: 10/26/19 Service Type: 91994 Hosp care 25 min moderate complexity Subjective: Met with patient along with Claudia Rossi LCSW. Patient lying in bed with legs elevated upon approach. He is initially calm and pleasant. He requests increased doses of Ibu and acetaminophen due to desire to decrease use of opioid pain medications. He states he is waiting for instructions in regards to post operative outpatient care. He states he does not have a plan of where to live and is thinking about staying in a hotel locally. [employer] reminds him that insurance coverage indicates he must return to [place]. He states he would prefer treatment team providers speak about discharge planning with his father. I inquire where he will want to receive mental health services. He goes on to blame the field of psychiatry and neuroleptics for worsening his physical condition. When asked about conversations he had with staff in regards to demons, patient was more irritable and defensive. He encouraged us to "read the book" and ranted about the spiritual world. He left the room citing desire to eat lunch. [employer] and SW phoned patient's father, Holden, and gave update on presentation and plan to pursue Treatment Over Objection. Objective - General Observations Appearance: Disheveled Stature: Thin Posture: WNL Eye Contact: Intense, Intermittent Behavior/Activity: Agitated - Interaction Observations Attitude Towards Examiner: Defensive, Mistrustful Stated Mood: Irritable Affect: Restricted Speech Pattern/Tone: Excessive, Pressured Thought Process: Loose Associations, Circumstantial, Over Inclusive Thought Content: Paranoid, Grandiose Thought Process: Lethality: Paranoid Ideation Hallucination Type: Denies Delusion Type: Persecution, Grandeur, Scientology - Cognitive Function Orientation: A&O x 4 Level of Consciousness: Alert Cognition: Impaired Attention/Concentration Estimated Intelligence: Normal Insight: Mostly Blames Others for Problems Judgment Within Normal Limits: No Ability to Make Reasonable Decisions: Serverely Impaired - Medication Compliance Cooperative with Inpatient Medication Regimen: Partial - Group Participation Participates in Group Activities: Partial Assessment - Assessment Inpatient DSM-V Dx: F20.0 Clinical Impression: 43yo wm with known history of schizophrenia and nonadherence to outpatient psychiatric treatment, who was living in [place] until filed OOP. Patient was brought to ED when family members called police due to concerns of his untreated mental illness. Two days prior, patient was seen in ED after sustaining a fall in a ravine thus fracturing an ankle fracture, requiring surgical intervention. Collateral information obtained denotes that may have been a suicide attempt. Patient was discharged to surgical services for R ankle ORIF on 10/22/19 then readmitted to BSU on emergency status the same day. Patient merits hospitalization for immediate safety and stabilization. Plan - Plan Treatment Plan: Name: IRAM QUIROS Birthdate: 1975 [id number] continue acute intensive psychiatric treatment. Constant observation while in room due to need for kita bandage. may have staff pass and use computer per RN discretion. DC use of e-tablet. increase ibu and APAP per patient request. continue other medications, as ordered. continue post-op directions per ortho. convert legal status to 2PC and pursue Treatment Over Objection. Continued Medication Management: Start Medication Medications: Current Medications Acetaminophen (Tylenol Tab*) 650 mg PO Q4H PRN PRN Reason: for pain; or Temp >101 F Last Admin: 10/26/19 10:09 Dose: 650 mg Al Hydrox/Mg Hydrox/Simethicone (Maalox Plus*) 30 ml PO Q4H PRN PRN Reason: INDIGESTION Aspirin (Aspirin Tab*) 325 mg PO DAILY [facility] Last Admin: 10/26/19 09:04 Dose: 325 mg Cephalexin HCl (Keflex Cap*) 500 mg PO TID [facility] Stop: 10/27/19 13:59 Last Admin: 10/26/19 09:04 Dose: 500 mg Chlorpromazine HCl (Thorazine Tab*) 100 mg PO Q6H PRN PRN Reason: agitation/anxiety Docusate Sodium (Colace Cap*) 100 mg PO BID [facility] Last Admin: 10/26/19 09:04 Dose: 100 mg Hydroxyzine HCl (Atarax Tab*) 50 mg PO Q4H PRN PRN Reason: anxiety Ibuprofen (Motrin Tab*) 600 mg PO Q6H PRN PRN Reason: PAIN - MILD Last Admin: 10/26/19 09:03 Dose: 600 mg Multivitamins (Theragran Tab*) 1 tab PO DAILY [facility] Last Admin: 10/26/19 09:04 Dose: 1 tab Nicotine (Nicotine Patch 14 Mg/24 Hr*) 1 patch TRANSDERM DAILY [facility] Last Admin: 10/26/19 10:08 Dose: Not Given Nicotine Polacrilex (Nicotine Gum*) 2 mg PO Q2H PRN PRN Reason: CRAVING Oxycodone HCl (Roxycodone Tab*) 5 mg PO Q6H PRN PRN Reason: PAIN - SEVERE Last Admin: 10/25/19 23:30 Dose: 5 mg Pharmacy Profile Note (Nicotine Patch Removal Note*) 1 note FOLLOW UP 2100 [facility] Last Admin: 10/26/19 00:59 Dose: Not Given Polyethylene Glycol/Electrolytes (Miralax (17 Gm Dose Rajesh)) 17 gm PO DAILY PRN PRN Reason: CONSTIPATION Last Admin: 10/24/19 11:19 Dose: 17 gm Risperidone (Risperdal-M Tab *) 1 mg PO BID [facility]; Protocol Last Admin: 10/26/19 09:05 Dose: Not Given - Discharge Plan Discharge Plan: Inpatient Hospitalization
[2019-10-26] MEDS ORDERED: Acetaminophen TAB* 325 MG PO PRN (12:41)
[2019-10-26] MEDS: oxyCODONE TAB* 5 MG TAB PO PRN (21:57)
[2019-10-27] MEDS: Nicotine Patch Removal NOTE FOLLOW UP SCH ×2 (00:13→21:49)
[2019-10-27] MEDS: Aspirin TAB* 325 MG PO SCH (08:00)
[2019-10-27] MEDS: Cephalexin CAP* 500 MG PO SCH (08:00)
[2019-10-27] MEDS: Vitamin THERAPEUTIC TAB PO SCH (08:01)
[2019-10-27] MEDS: Docusate CAP* 100 MG PO SCH ×2 (08:01→21:49)
[2019-10-27] MEDS: Acetaminophen TAB* 325 MG PO PRN ×3 (08:02→19:47)
[2019-10-27] MEDS: Nicotine PATCH 14 MG/24 HR* PATCH TRANSDERM SCH (08:03)
[2019-10-27] MEDS: risperiDONE-M * 1 MG TAB.ORADIS PO SCH ×2 (08:03→21:49)
[2019-10-27] MEDS: oxyCODONE TAB* 5 MG TAB PO PRN ×3 (08:24→21:46)
--- NOTE | 2019-10-27 10:12 | PN ---
Subjective - Subjective Date of Service: 10/27/19 Service Type: 90592 Hosp care 25 min moderate complexity Subjective: Per staff, patient makes bizarre and threatening statements. He has been in poor behavioral control and is often irritable with intense gaze. Patient reports need to discuss 5 things, otherwise he may need to be treated at a different hospital. He expresses painful urination and that his penis turns purple, as if it is not getting enough bloodflow due to the S3 injury. He states concern that he may have contracted an STI from "sharing cigarettes with homeless people." He denies recent sexual activity. He agrees to STI testing. The rest of his concerns are r/t [place] He is receptive to entry writer's explanations. Patient notified of [facility] pursing Treatment Over Objection. He is irritable and demanding to know basis of decision. Cotton Classer attempts to explain but is met with agitation. He states "You all don't deserve life. I hope the michael virus kills you all" and leaves the room. Patient asked to speak with entry writer again. He asks for rationale but rebuts any given. He denies any aggression toward his and states the hearing "was thrown out of court." Cotton Classer reiterated that [facility] is pursuing Treatment Over Objection due to his inability to care for self and aggression toward others, including verbal aggression and delusional thinking observed while hospitalized. Cotton Classer returned to call to father, Holden Chowdary. He states that he has been having very difficult phone calls from Roni wherein Roni rants angry dialogue. We discussed that Roni minimizes his behavior and denies being aggressive or making suicidal gestures. Holden clarifies that in the OOP hearing, Roni's wasn't called to testify. Roni was irate and yelling for approximately 5 minutes until the Telephoto Engineer interrupted him and granted the OOP. Objective - General Observations Appearance: Unkempt Stature: Thin Posture: WNL Eye Contact: Intense Behavior/Activity: Agitated - Interaction Observations Attitude Towards Examiner: Defensive, Demanding, Disrespectful Stated Mood: Irritable Affect: Restricted Speech Pattern/Tone: Inappropriate, Pressured, Loud Volume Thought Process: Loose Associations, Circumstantial Perception: WNL Thought Content: Paranoid, Grandiose Thought Process: Lethality: Paranoid Ideation Hallucination Type: Denies Delusion Type: Persecution, Grandeur - Cognitive Function Orientation: A&O x 4 Level of Consciousness: Alert Cognition: Impaired Attention/Concentration Estimated Intelligence: Normal Insight: Mostly Blames Others for Problems Judgment Within Normal Limits: No Ability to Make Reasonable Decisions: Serverely Impaired - Medication Compliance Cooperative with Inpatient Medication Regimen: Partial - Group Participation Participates in Group Activities: No Assessment - Assessment Merits Inpatient Hospitalization: For Immediate Safety, For Stabilization Inpatient DSM-V Dx: F20.0 Clinical Impression: 43yo wm with known history of schizophrenia and nonadherence to outpatient psychiatric treatment, who was living in [place] until filed OOP. Patient was brought to ED when family members called police due to concerns of his untreated mental illness. Two days prior, patient was seen in ED after [place] thus fracturing an ankle fracture, requiring surgical intervention. Collateral information obtained denotes that may have been a suicide attempt. Patient was discharged to surgical services for R ankle ORIF on 10/22/19 then readmitted to [facility] on emergency status the same day. Patient merits hospitalization for immediate safety and stabilization. Plan - Plan Treatment Plan: Name: IRAM CHOWDARY Birthdate: 1975 [id number] continue acute intensive psychiatric treatment. Constant observation while in room due to need for kita bandage. may have staff pass and use computer per RN discretion. DC use of e-tablet. increase ibu and APAP per patient request. continue other medications, as ordered. continue post-op directions per ortho. convert legal status to 2PC and pursue Treatment Over Objection. Continued Medication Management: Start Medication Medications: Current Medications Acetaminophen (Tylenol Tab*) 975 mg PO Q6H PRN PRN Reason: for pain; or Temp >101 F Last Admin: 10/27/19 08:02 Dose: 975 mg Al Hydrox/Mg Hydrox/Simethicone (Maalox Plus*) 30 ml PO Q4H PRN PRN Reason: INDIGESTION Aspirin (Aspirin Tab*) 325 mg PO DAILY [facility] Last Admin: 10/27/19 08:00 Dose: 325 mg Cephalexin HCl (Keflex Cap*) 500 mg PO TID [facility] Stop: 10/27/19 13:59 Last Admin: 10/27/19 08:00 Dose: 500 mg Chlorpromazine HCl (Thorazine Tab*) 100 mg PO Q6H PRN PRN Reason: agitation/anxiety Docusate Sodium (Colace Cap*) 100 mg PO BID [facility] Last Admin: 10/27/19 08:01 Dose: 100 mg Hydroxyzine HCl (Atarax Tab*) 50 mg PO Q4H PRN PRN Reason: anxiety Ibuprofen (Motrin Tab*) 600 mg PO Q4H PRN PRN Reason: PAIN - MILD Last Admin: 10/26/19 19:46 Dose: 600 mg Multivitamins (Theragran Tab*) 1 tab PO DAILY [facility] Last Admin: 10/27/19 08:01 Dose: 1 tab Nicotine (Nicotine Patch 14 Mg/24 Hr*) 1 patch TRANSDERM DAILY [facility] Last Admin: 10/27/19 08:03 Dose: Not Given Nicotine Polacrilex (Nicotine Gum*) 2 mg PO Q2H PRN PRN Reason: CRAVING Oxycodone HCl (Roxycodone Tab*) 5 mg PO Q6H PRN PRN Reason: PAIN - SEVERE Last Admin: 10/27/19 08:24 Dose: 5 mg Pharmacy Profile Note (Nicotine Patch Removal Note*) 1 note FOLLOW UP 2100 [facility] Last Admin: 10/27/19 00:13 Dose: Not Given Polyethylene Glycol/Electrolytes (Miralax (17 Gm Dose Rajesh)) 17 gm PO DAILY PRN PRN Reason: CONSTIPATION Last Admin: 10/24/19 11:19 Dose: 17 gm Risperidone (Risperdal-M Tab *) 1 mg PO BID [facility]; Protocol Last Admin: 10/27/19 08:03 Dose: Not Given - Discharge Plan Discharge Plan: Inpatient Hospitalization
[2019-10-27] MEDS: Ibuprofen TAB* 600 MG PO PRN ×2 (11:08→17:18)
[2019-10-27 11:47] LABS: Hepatitis B Surface Antigen Nonreactive (Nonreactive)
[2019-10-27 12:04] LABS: Hepatitis C Antibody Negative (Negative)
--- NOTE | 2019-10-27 12:51 | PN ---
Progress Note - Progress Note Date of Service: 10/27/19 SOAP: Subjective: POD #5 Right ankle pilon fracture ORIF. Pt states that he has developed pain along the front of his leg. He states that the pain was not there yeseterday. He states that he has been compliant with NWB which is backed up by staff. He also denies any injury. Staff today stated that the pt has been upset as the hospital will be taking him to court in order to continue to treat him against his will. Denies CP/SOB, f/c, n/v or calf pain. Objective: Gen: A&Ox3, NAD RLE: Splint C/D/I. +f/e at MTPs, sensation intact with brisk cap refill. He has some moderate pain along the tibia with no step off. Vital Signs Temp 99.2 F 10/27/19 08:00 Pulse 68 10/27/19 08:00 Resp 18 10/27/19 12:00 BP 130/59 10/27/19 08:00 Pulse Ox 100 10/27/19 08:00 Assessment: POD #5 Right ankle pilon fracture ORIF Plan: Cont NWB RLE with crutches, elevate frequently Pt will have leg evaluated tomorrow. Given that the pt has been upset with the news today and that he has had no injury and been compliant with NWB there may be a component of psychosomatic pain. We will continue to monitor. Should pain not improve xray will be considered. Will continue to follow while hospitalized, will need staple removal 10-14 days post and short leg cast applied Otherwise can f/u as outpt when d/c
[2019-10-28] MEDS: Ibuprofen TAB* 600 MG PO PRN ×4 (02:30→19:28)
[2019-10-28] MEDS: oxyCODONE TAB* 5 MG TAB PO PRN ×3 (02:55→19:27)
[2019-10-28] MEDS: Acetaminophen TAB* 325 MG PO PRN (07:28)
[2019-10-28] MEDS: Docusate CAP* 100 MG PO SCH ×2 (10:18→22:29)
[2019-10-28] MEDS: Aspirin TAB* 325 MG PO SCH (10:18)
[2019-10-28] MEDS: Vitamin THERAPEUTIC TAB PO SCH (10:18)
[2019-10-28] MEDS: risperiDONE-M * 1 MG TAB.ORADIS PO SCH ×2 (10:19→22:29)
[2019-10-28] MEDS: Nicotine PATCH 14 MG/24 HR* PATCH TRANSDERM SCH (10:21)
[2019-10-28] MEDS: Nicotine Patch Removal NOTE FOLLOW UP SCH (23:11)
[2019-10-29] MEDS: Ibuprofen TAB* 600 MG PO PRN ×4 (01:55→22:33)
[2019-10-29] MEDS: oxyCODONE TAB* 5 MG TAB PO PRN ×4 (01:55→22:32)
[2019-10-29] MEDS: Vitamin THERAPEUTIC TAB PO SCH (08:26)
[2019-10-29] MEDS: Nicotine PATCH 14 MG/24 HR* PATCH TRANSDERM SCH (08:26)
[2019-10-29] MEDS: risperiDONE-M * 1 MG TAB.ORADIS PO SCH (08:26)
[2019-10-29] MEDS: Aspirin TAB* 325 MG PO SCH (08:26)
[2019-10-29] MEDS: Docusate CAP* 100 MG PO SCH ×2 (08:26→20:37)
--- NOTE | 2019-10-29 10:30 | PN ---
Subjective - Subjective Date of Service: 10/29/19 Service Type: [id number] Hosp care 35 min high complexity Subjective: I met with Iram today to introduce myself and take over his care. The patient is pressured, paranoid and hyperverbal, complaining that his family, his and his friend in [place], with whom he was briefly staying one month ago, are all against him and lying to get him psychiatrically hospitalized. The patient is given a copy of his medication request sheet for court tomorrow and objects to all antipsychotics, saying "That stuff all lowered my testosterone to almost nothing and made my muscles and bones brittle. " He has no insight into his illness. He has no coherent plan for how he would take care of himself if allowed to leave the hospital without further treatment. He denies SI or HI. Objective - General Observations Appearance: Well Groomed Appears Stated Age: Yes Stature: Thin Posture: WNL Eye Contact: Intense Behavior/Activity: Accelerated - Interaction Observations Attitude Towards Examiner: Hostile Stated Mood: Irritable Affect: Labile Speech Pattern/Tone: Excessive, Pressured Thought Process: Tangential Thought Content: Paranoid Thought Process: Lethality: Paranoid Ideation Hallucination Type: None Delusion Type: Persecution - Cognitive Function Orientation: A&O x 4 Level of Consciousness: Awake Estimated Intelligence: Normal Insight: Mostly Blames Others for Problems Judgment Within Normal Limits: No Ability to Make Reasonable Decisions: Serverely Impaired - Medication Compliance Cooperative with Inpatient Medication Regimen: No - Group Participation Participates in Group Activities: No Assessment - Assessment Merits Inpatient Hospitalization: For Immediate Safety, For Stabilization Inpatient DSM-V Dx: F20.0 Clinical Impression: 43yo wm with known history of schizophrenia and nonadherence to outpatient psychiatric treatment, who was living in [place] until filed OOP. Patient was brought to ED when family members called police due to concerns of his untreated mental illness. Two days prior, patient was seen in ED after [place] thus fracturing an ankle fracture, requiring surgical intervention. Collateral information obtained denotes that may have been a suicide attempt. Patient was discharged to surgical services for R ankle ORIF on 10/22/19 then readmitted to [facility] on emergency status the same day. Patient merits hospitalization for immediate safety and stabilization. Plan - Plan Treatment Plan: Name: IRAM QUIROS Birthdate: 1975 [id number] continue acute intensive psychiatric treatment. Constant observation while in room due to need for kita bandage. may have staff pass and use computer per RN discretion. DC use of e-tablet. increase ibu and APAP per patient request. continue other medications, as ordered. continue post-op directions per ortho. convert legal status to 2PC and pursue Treatment Over Objection. Continued Medication Management: Start Medication Medications: Current Medications Acetaminophen (Tylenol Tab*) 975 mg PO Q6H PRN PRN Reason: for pain; or Temp >101 F Last Admin: 10/28/19 07:28 Dose: 975 mg Al Hydrox/Mg Hydrox/Simethicone (Maalox Plus*) 30 ml PO Q4H PRN PRN Reason: INDIGESTION Aspirin (Aspirin Tab*) 325 mg PO DAILY [facility] Last Admin: 10/29/19 08:26 Dose: 325 mg Chlorpromazine HCl (Thorazine Tab*) 100 mg PO Q6H PRN PRN Reason: agitation/anxiety Docusate Sodium (Colace Cap*) 100 mg PO BID [facility] Last Admin: 10/29/19 08:26 Dose: Not Given Hydroxyzine HCl (Atarax Tab*) 50 mg PO Q4H PRN PRN Reason: anxiety Ibuprofen (Motrin Tab*) 600 mg PO Q4H PRN PRN Reason: PAIN - MILD Last Admin: 10/29/19 08:26 Dose: 600 mg Multivitamins (Theragran Tab*) 1 tab PO DAILY [facility] Last Admin: 10/29/19 08:26 Dose: 1 tab Nicotine (Nicotine Patch 14 Mg/24 Hr*) 1 patch TRANSDERM DAILY [facility] Last Admin: 10/29/19 08:26 Dose: Not Given Nicotine Polacrilex (Nicotine Gum*) 2 mg PO Q2H PRN PRN Reason: CRAVING Oxycodone HCl (Roxycodone Tab*) 5 mg PO Q6H PRN PRN Reason: PAIN - SEVERE Last Admin: 10/29/19 08:26 Dose: 5 mg Pharmacy Profile Note (Nicotine Patch Removal Note*) 1 note FOLLOW UP 2100 [facility] Last Admin: 10/28/19 23:11 Dose: Not Given Polyethylene Glycol/Electrolytes (Miralax (17 Gm Dose Rajesh)) 17 gm PO DAILY PRN PRN Reason: CONSTIPATION Last Admin: 10/24/19 11:19 Dose: 17 gm Risperidone (Risperdal-M Tab *) 1 mg PO BID [facility]; Protocol Last Admin: 10/29/19 08:26 Dose: Not Given - Discharge Plan Discharge Plan: Inpatient Hospitalization
[2019-10-29] MEDS: Acetaminophen TAB* 325 MG PO PRN ×2 (10:58→19:40)
--- NOTE | 2019-10-29 11:49 | PN ---
Progress Note - Progress Note Date of Service: 10/29/19 SOAP: Subjective: POD #7 Right ankle pilon fracture ORIF. Pt continues to have pain in the ankle but states it is better than the other day. Staff states that he is compliant with NWB. Denies CP/SOB, f/c, n/v or calf pain. Objective: Gen: A&Ox3, NAD RLE: Splint C/D/I. +f/e at MTPs, sensation intact with brisk cap refill. He has some moderate pain along the tibia with no step off. Vital Signs Temp 98.1 F 10/29/19 08:00 Pulse 56 10/29/19 08:00 Resp 16 10/29/19 10:39 BP 107/66 10/29/19 08:00 Pulse Ox 98 10/28/19 08:37 Intake & Output 10/28/19 10/29/19 10/29/19 18:59 06:59 18:59 Weight 155 lb 6.4 oz Assessment: POD #7 Right ankle pilon fracture ORIF Plan: Cont NWB RLE with crutches, elevate frequently Will continue to follow while hospitalized, next day we will see him is 2019, will need staple removal 10-14 days post and short leg cast applied Otherwise can f/u as outpt when d/c
[2019-10-29] MEDS ORDERED: Paliperidone SUSTENNA* 234 MG/1.5 ML IM ONE (15:57)
[2019-10-29] MEDS: hydrOXYzine HCL TAB* 50 MG PO PRN (21:23)
[2019-10-29] MEDS: Nicotine Patch Removal NOTE FOLLOW UP SCH (23:31)
[2019-10-30] MEDS: Ibuprofen TAB* 600 MG PO PRN ×3 (05:03→16:59)
[2019-10-30] MEDS: oxyCODONE TAB* 5 MG TAB PO PRN ×3 (05:03→20:13)
[2019-10-30] MEDS: Docusate CAP* 100 MG PO SCH ×2 (10:24→20:14)
[2019-10-30] MEDS: Aspirin TAB* 325 MG PO SCH (10:24)
[2019-10-30] MEDS: Vitamin THERAPEUTIC TAB PO SCH (10:24)
[2019-10-30] MEDS: Nicotine PATCH 14 MG/24 HR* PATCH TRANSDERM SCH (11:38)
[2019-10-30 14:16] LABS: Chlamydia trachomatis NAA Negative (Negative); Neisseria gonorrhoeae (GC) NAA Negative (Negative)
--- NOTE | 2019-10-30 14:24 | PN ---
Subjective - Subjective Date of Service: 10/30/19 Service Type: 10829 Hosp care 15 min low complexity Subjective: Iram participated appropriately in his Treatment Over Objection court hearing , which was performed electronically due to the COVID pandemic. He remains paranoid with limited insight and objected to the inclusion of clozapine on his med list, however, he did accede to initiating paliperidone Sustena 234mg IM yesterday afternoon and states his willingness to take the 156mg dose on Saturday (11/01). The case was decided in the Hospital's favor and Mr. Chowdary remained in behavioral control throughout. He continues to deny SI or HI. Objective - General Observations Appearance: Neat Appears Stated Age: Yes Stature: Thin, Short Posture: WNL Eye Contact: Average Behavior/Activity: WNL - Interaction Observations Attitude Towards Examiner: Defensive Stated Mood: Irritable Affect: Blunted Speech Pattern/Tone: Clear Thought Process: Tangential Thought Content: Paranoid Thought Process: Lethality: Paranoid Ideation Hallucination Type: None Delusion Type: Persecution - Cognitive Function Orientation: A&O x 4 Level of Consciousness: Awake Cognition: WNL Estimated Intelligence: Normal Insight: Difficulty Acknowledging Presence of Psyciatric Problems Judgment Within Normal Limits: No Ability to Make Reasonable Decisions: Moderately Impaired - Medication Compliance Cooperative with Inpatient Medication Regimen: Partial - Group Participation Participates in Group Activities: No Assessment - Assessment Merits Inpatient Hospitalization: For Immediate Safety, For Stabilization Inpatient DSM-V Dx: F20.0 Clinical Impression: 43yo wm with known history of schizophrenia and nonadherence to outpatient psychiatric treatment, who was living in [place] until filed OOP. Patient was brought to ED when family members called police due to concerns of his untreated mental illness. Two days prior, patient was seen in ED after [place] thus fracturing an ankle fracture, requiring surgical intervention. Collateral information obtained denotes that may have been a suicide attempt. Patient was discharged to surgical services for R ankle ORIF on 10/22/19 then readmitted to [facility] on emergency status the same day. Patient merits hospitalization for immediate safety and stabilization. Plan - Plan Treatment Plan: Name: IRAM CHOWDARY Birthdate: 1975 [id number] continue acute intensive psychiatric treatment. Constant observation while in room due to need for kita bandage. may have staff pass and use computer per RN discretion. DC use of e-tablet. increase ibu and APAP per patient request. continue other medications, as ordered. continue post-op directions per ortho. Invega Sustena 156mg booster dose on Saturday, November 01. Continued Medication Management: Start Medication Medications: Current Medications Acetaminophen (Tylenol Tab*) 975 mg PO Q6H PRN PRN Reason: for pain; or Temp >101 F Last Admin: 10/29/19 19:40 Dose: 975 mg Al Hydrox/Mg Hydrox/Simethicone (Maalox Plus*) 30 ml PO Q4H PRN PRN Reason: INDIGESTION Aspirin (Aspirin Tab*) 325 mg PO DAILY [facility] Last Admin: 10/30/19 10:24 Dose: 325 mg Chlorpromazine HCl (Thorazine Tab*) 100 mg PO Q6H PRN PRN Reason: agitation/anxiety Docusate Sodium (Colace Cap*) 100 mg PO BID [facility] Last Admin: 10/30/19 10:24 Dose: 100 mg Hydroxyzine HCl (Atarax Tab*) 50 mg PO Q4H PRN PRN Reason: anxiety Last Admin: 10/29/19 21:23 Dose: 50 mg Ibuprofen (Motrin Tab*) 600 mg PO Q4H PRN PRN Reason: PAIN - MILD Last Admin: 10/30/19 10:25 Dose: 600 mg Multivitamins (Theragran Tab*) 1 tab PO DAILY [facility] Last Admin: 10/30/19 10:24 Dose: 1 tab Nicotine (Nicotine Patch 14 Mg/24 Hr*) 1 patch TRANSDERM DAILY [facility] Last Admin: 10/30/19 11:38 Dose: Not Given Nicotine Polacrilex (Nicotine Gum*) 2 mg PO Q2H PRN PRN Reason: CRAVING Oxycodone HCl (Roxycodone Tab*) 5 mg PO Q6H PRN PRN Reason: PAIN - SEVERE Last Admin: 10/30/19 12:12 Dose: 5 mg Pharmacy Profile Note (Nicotine Patch Removal Note*) 1 note FOLLOW UP 2100 [facility] Last Admin: 10/29/19 23:31 Dose: Not Given Polyethylene Glycol/Electrolytes (Miralax (17 Gm Dose Rajesh)) 17 gm PO DAILY PRN PRN Reason: CONSTIPATION Last Admin: 10/24/19 11:19 Dose: 17 gm - Discharge Plan Discharge Plan: Inpatient Hospitalization
[2019-10-30] MEDS: Acetaminophen TAB* 325 MG PO PRN (16:58)
[2019-10-30] MEDS: Nicotine Patch Removal NOTE FOLLOW UP SCH (20:43)
[2019-10-31] MEDS: oxyCODONE TAB* 5 MG TAB PO PRN ×4 (02:11→21:44)
[2019-10-31] MEDS: Ibuprofen TAB* 600 MG PO PRN ×3 (02:12→21:45)
[2019-10-31] MEDS: Nicotine PATCH 14 MG/24 HR* PATCH TRANSDERM SCH (07:48)
[2019-10-31] MEDS: Aspirin TAB* 325 MG PO SCH (09:50)
[2019-10-31] MEDS: Docusate CAP* 100 MG PO SCH ×2 (09:50→21:47)
[2019-10-31] MEDS: Vitamin THERAPEUTIC TAB PO SCH (09:50)
[2019-10-31] MEDS: Acetaminophen TAB* 325 MG PO PRN (17:35)
[2019-10-31] MEDS: Nicotine Patch Removal NOTE FOLLOW UP SCH (21:47)
[2019-11-01] MEDS: Ibuprofen TAB* 600 MG PO PRN ×4 (01:33→21:04)
[2019-11-01] MEDS: Aspirin TAB* 325 MG PO SCH (08:33)
[2019-11-01] MEDS: Vitamin THERAPEUTIC TAB PO SCH (08:33)
[2019-11-01] MEDS: Docusate CAP* 100 MG PO SCH ×2 (10:41→21:06)
[2019-11-01] MEDS: Nicotine PATCH 14 MG/24 HR* PATCH TRANSDERM SCH (10:41)
[2019-11-01] MEDS: oxyCODONE TAB* 5 MG TAB PO PRN ×2 (12:05→21:03)
[2019-11-01] MEDS: Acetaminophen TAB* 325 MG PO PRN ×2 (15:58→22:23)
[2019-11-01] MEDS: Nicotine Patch Removal NOTE FOLLOW UP SCH (21:07)
[2019-11-01] MEDS: hydrOXYzine HCL TAB* 50 MG PO PRN (22:23)
[2019-11-02] MEDS: Vitamin THERAPEUTIC TAB PO SCH (09:51)
[2019-11-02] MEDS: Aspirin TAB* 325 MG PO SCH (09:51)
[2019-11-02] MEDS: Docusate CAP* 100 MG PO SCH ×2 (09:51→21:16)
[2019-11-02] MEDS: Nicotine PATCH 14 MG/24 HR* PATCH TRANSDERM SCH (09:51)
[2019-11-02] MEDS: Acetaminophen TAB* 325 MG PO PRN ×2 (09:53→18:38)
[2019-11-02] MEDS ORDERED: Paliperidone SUSTENNA* 156 MG/1 ML IM ONE (10:14)
[2019-11-02] MEDS: Ibuprofen TAB* 600 MG PO PRN ×2 (10:35→18:39)
--- NOTE | 2019-11-02 10:56 | PN ---
Subjective - Subjective Date of Service: 11/02/19 Service Type: 67517 Hosp care 25 min moderate complexity Subjective: Patient notified of plan for ortho team to cast his foot on 11/05/19. Volcanologist expressed hope that he will be stable for discharge, pending transition to outpatient services covered by insurance. Patient is irritable and does not make eye contact. He states he wants to go home to his or live with a friend in [place]. [Neither of these are viable options.] He goes on to discuss side effects of invega, such as heart palpitations and decreased bone density. Objective - General Observations Appearance: Unkempt Stature: Thin Posture: WNL Eye Contact: Avoidant Behavior/Activity: Agitated - Interaction Observations Attitude Towards Examiner: Defensive, Mistrustful, Dismissive Stated Mood: Irritable Affect: Restricted Speech Pattern/Tone: Clear, Appropriate, Normal Volume Thought Process: Loose Associations, Circumstantial Perception: WNL Thought Content: Paranoid Thought Process: Lethality: Paranoid Ideation Hallucination Type: Denies Delusion Type: Persecution, Grandeur, Somatic - Cognitive Function Orientation: A&O x 4 Level of Consciousness: Alert Cognition: Impaired Attention/Concentration Estimated Intelligence: Normal Insight: Mostly Blames Others for Problems, Difficulty Acknowledging Presence of Psyciatric Problems Judgment Within Normal Limits: No Ability to Make Reasonable Decisions: Serverely Impaired - Medication Compliance Cooperative with Inpatient Medication Regimen: Yes - Group Participation Participates in Group Activities: Partial Assessment - Assessment Merits Inpatient Hospitalization: For Immediate Safety, For Stabilization Inpatient DSM-V Dx: F20.0 Clinical Impression: 43yo wm with known history of schizophrenia and nonadherence to outpatient psychiatric treatment, who was living in [place] until filed OOP. Patient was brought to ED when family members called police due to concerns of his untreated mental illness. Two days prior, patient was seen in ED after sustaining a [place] thus fracturing an ankle fracture, requiring surgical intervention. Collateral information obtained denotes that may have been a suicide attempt. Patient was discharged to surgical services for R ankle ORIF on 10/22/19 then readmitted to [facility] on emergency status the same day. Patient merits hospitalization for immediate safety and stabilization. Treatment Over Objection granted by Sophia Flanagan on 10/30/19. Plan - Plan Treatment Plan: Name: IRAM QUIROS Birthdate: 1975 [id number] continue acute intensive psychiatric treatment. Constant observation while in room due to need for kita bandage. may have staff pass and use computer per RN discretion. continue medications, as ordered. continue post-op directions per ortho- plan to change to cast on 11/05/19. Invega Sustena 156mg, second booster dose on Saturday, November 01. obtain testosterone level per patient request and prolactin baseline. obtain EKG. discharge planning to include patient family and outpatient referrals in [place] Continued Medication Management: Start Medication Medications: Current Medications Acetaminophen (Tylenol Tab*) 975 mg PO Q6H PRN PRN Reason: for pain; or Temp >101 F Last Admin: 11/02/19 09:53 Dose: 975 mg Al Hydrox/Mg Hydrox/Simethicone (Maalox Plus*) 30 ml PO Q4H PRN PRN Reason: INDIGESTION Aspirin (Aspirin Tab*) 325 mg PO DAILY [facility] Last Admin: 11/02/19 09:51 Dose: 325 mg Chlorpromazine HCl (Thorazine Tab*) 100 mg PO Q6H PRN PRN Reason: agitation/anxiety Docusate Sodium (Colace Cap*) 100 mg PO BID [facility] Last Admin: 11/02/19 09:51 Dose: Not Given Hydroxyzine HCl (Atarax Tab*) 50 mg PO Q4H PRN PRN Reason: anxiety Last Admin: 11/01/19 22:23 Dose: 50 mg Ibuprofen (Motrin Tab*) 600 mg PO Q4H PRN PRN Reason: PAIN - MILD Last Admin: 11/02/19 10:35 Dose: 600 mg Multivitamins (Theragran Tab*) 1 tab PO DAILY [facility] Last Admin: 11/02/19 09:51 Dose: 1 tab Nicotine (Nicotine Patch 14 Mg/24 Hr*) 1 patch TRANSDERM DAILY [facility] Last Admin: 11/02/19 09:51 Dose: Not Given Nicotine Polacrilex (Nicotine Gum*) 2 mg PO Q2H PRN PRN Reason: CRAVING Oxycodone HCl (Roxycodone Tab*) 5 mg PO Q6H PRN PRN Reason: PAIN - SEVERE Last Admin: 11/01/19 21:03 Dose: 5 mg Pharmacy Profile Note (Nicotine Patch Removal Note*) 1 note FOLLOW UP [facility]99 [facility] Last Admin: 11/01/19 21:07 Dose: Not Given Polyethylene Glycol/Electrolytes (Miralax (17 Gm Dose Rajesh)) 17 gm PO DAILY PRN PRN Reason: CONSTIPATION Last Admin: 10/24/19 11:19 Dose: 17 gm - Discharge Plan Discharge Plan: Inpatient Hospitalization
[2019-11-02 13:46] LABS: Testosterone 310.91 ng/dL (240-950)
[2019-11-02 14:00] LABS: Prolactin 30.4 ng/mL (1.0-20.0)
[2019-11-02] MEDS: oxyCODONE TAB* 5 MG TAB PO PRN ×2 (14:58→21:17)
[2019-11-02] MEDS ORDERED: Albuterol 0.5% CONC NEB.SOL* 5 MG/ML 20 ml BOT INH PRN (17:10)
[2019-11-02] MEDS ORDERED: Albuterol 2.5 MG/3 ML NEB.SOL* (0.083%) INH PRN (17:27)
[2019-11-03] MEDS: Nicotine Patch Removal NOTE FOLLOW UP SCH ×2 (00:19→19:15)
[2019-11-03] MEDS: Vitamin THERAPEUTIC TAB PO SCH (11:47)
[2019-11-03] MEDS: Aspirin TAB* 325 MG PO SCH (11:47)
[2019-11-03] MEDS: Docusate CAP* 100 MG PO SCH ×2 (11:47→21:12)
[2019-11-03] MEDS: Nicotine PATCH 14 MG/24 HR* PATCH TRANSDERM SCH (11:47)
[2019-11-03] MEDS: Acetaminophen TAB* 325 MG PO PRN (14:22)
[2019-11-04] MEDS: Ibuprofen TAB* 600 MG PO PRN ×2 (01:50→13:09)
[2019-11-04] MEDS: oxyCODONE TAB* 5 MG TAB PO PRN ×2 (01:52→18:38)
[2019-11-04] MEDS: Docusate CAP* 100 MG PO SCH ×2 (09:20→21:49)
[2019-11-04] MEDS: Nicotine PATCH 14 MG/24 HR* PATCH TRANSDERM SCH (09:20)
[2019-11-04] MEDS: Aspirin TAB* 325 MG PO SCH (09:20)
[2019-11-04] MEDS: Vitamin THERAPEUTIC TAB PO SCH (09:20)
--- NOTE | 2019-11-04 10:20 | PN ---
Subjective - Subjective Date of Service: 11/04/19 Service Type: 47013 Hosp care 35 min high complexity Subjective: Ortho placed hard cast on R foot this morning. Constant obs DC'd as there is no ligature risk without an kita bandage. Patient is primarily seclusive except for meals. He continues to inquire as to why he cannot go home to live with his . When reminded of OOP, he denies history of aggressiveness. He reports desire to explore discharge planning in [place] or [place]. SW notified him of potential options in [facility]. Patient expressed that he does not want to go to those, as they are "terrible neighborhoods" and describes them as low socio-economic areas. Phone conference with father, Holden, and Claudia Rossi LCSW. He expresses concern about patient being discharged too soon. Silverlight Developer and Claudia explained process and desire to begin search while patient is responding to [facility]. Holden reports considering financially supporting Roni and utilizing private agencies with the expectation that Roni is compliant with treatment. Objective - General Observations Appearance: Unkempt Stature: Thin Posture: WNL Eye Contact: Avoidant Behavior/Activity: Slowed - Interaction Observations Attitude Towards Examiner: Defensive Stated Mood: Euthymic Affect: Restricted Speech Pattern/Tone: Quiet Volume Perception: WNL Thought Content: Grandiose Hallucination Type: Denies Delusion Type: Denies - Cognitive Function Orientation: A&O x 4, Unable to Determine Cognition: Impaired Attention/Concentration Estimated Intelligence: Normal Insight: Mostly Blames Others for Problems, Difficulty Acknowledging Presence of Psyciatric Problems Judgment Within Normal Limits: No Ability to Make Reasonable Decisions: Serverely Impaired - Medication Compliance Cooperative with Inpatient Medication Regimen: Yes - Group Participation Participates in Group Activities: No Assessment - Assessment Merits Inpatient Hospitalization: For Immediate Safety, For Stabilization, For Discharge Planning, Pending Safe DC Plan Inpatient DSM-V Dx: F20.0 Clinical Impression: 43yo wm with known history of schizophrenia and nonadherence to outpatient psychiatric treatment, who was living in [place] until filed OOP. Patient was brought to ED when family members called police due to concerns of his untreated mental illness. Two days prior, patient was seen in ED after sustaining a fall [place] a ra[place] thus fracturing an ankle fracture, requiring surgical intervention. Collateral information obtained denotes that may have been a suicide attempt. Patient was discharged to surgical services for R ankle ORIF on 10/22/19 then readmitted to [facility] on emergency status the same day. Patient merits hospitalization for immediate safety and stabilization. Treatment Over Objection granted by [facility] Judge Flanagan on 10/30/19. Plan - Plan Treatment Plan: Name: IRAM QUIROS Birthdate: 1975 [id number] continue acute intensive psychiatric treatment. DC constant observation, decrease to q30min obs. may have staff pass and use computer per RN discretion. continue medications, as ordered. continue post-op directions per ortho- cast placed on 11/04/19. Invega Sustena 156mg, second booster dose on Saturday, November 01. discharge planning to include patient family and outpatient referrals in [place] Medications: Current Medications Acetaminophen (Tylenol Tab*) 975 mg PO Q6H PRN PRN Reason: for pain; or Temp >101 F Last Admin: 11/03/19 14:22 Dose: 975 mg Al Hydrox/Mg Hydrox/Simethicone (Maalox Plus*) 30 ml PO Q4H PRN PRN Reason: INDIGESTION Albuterol (Ventolin 2.5 Mg/3 Ml Neb.Melissa*) 2.5 mg INH Q6H PRN PRN Reason: SOB/WHEEZING Aspirin (Aspirin Tab*) 325 mg PO DAILY [facility] Last Admin: 11/04/19 09:20 Dose: Not Given Chlorpromazine HCl (Thorazine Tab*) 100 mg PO Q6H PRN PRN Reason: agitation/anxiety Docusate Sodium (Colace Cap*) 100 mg PO BID [facility] Last Admin: 11/04/19 09:20 Dose: Not Given Hydroxyzine HCl (Atarax Tab*) 50 mg PO Q4H PRN PRN Reason: anxiety Last Admin: 11/01/19 22:23 Dose: 50 mg Ibuprofen (Motrin Tab*) 600 mg PO Q4H PRN PRN Reason: PAIN - MILD Last Admin: 11/04/19 01:50 Dose: 600 mg Multivitamins (Theragran Tab*) 1 tab PO DAILY [facility] Last Admin: 11/04/19 09:20 Dose: Not Given Nicotine (Nicotine Patch 14 Mg/24 Hr*) 1 patch TRANSDERM DAILY [facility] Last Admin: 11/04/19 09:20 Dose: Not Given Nicotine Polacrilex (Nicotine Gum*) 2 mg PO Q2H PRN PRN Reason: CRAVING Oxycodone HCl (Roxycodone Tab*) 5 mg PO Q6H PRN PRN Reason: PAIN - SEVERE Last Admin: 11/04/19 01:52 Dose: 5 mg Pharmacy Profile Note (Nicotine Patch Removal Note*) 1 note FOLLOW UP 2100 MIGUEL Last Admin: 11/03/19 19:15 Dose: Not Given Polyethylene Glycol/Electrolytes (Miralax (17 Gm Dose Rajesh)) 17 gm PO DAILY PRN PRN Reason: CONSTIPATION Last Admin: 10/24/19 11:19 Dose: 17 gm - Discharge Plan Discharge Plan: Inpatient Hospitalization
[2019-11-04] MEDS: Acetaminophen TAB* 325 MG PO PRN (10:40)
--- NOTE | 2019-11-04 12:16 | PN ---
Progress Note - Progress Note Date of Service: 11/04/19 SOAP: Subjective: POD #13 right ankle ORIF. Doing well, states pain is controlled. Concerned about swelling in his foot. Denies CP/SOB, calf pain, f/c, n/v. Objective: Vital Signs: Temp Pulse Resp BP Pulse Ox 98.8 F 59 16 112/67 99 04 08:00 11/04/19 08:00 11/04/19 08:00 11/04/19 08:00 11/04/19 08:00 Gen: A&Ox3, NAD at rest sitting at bedside RLE: Splint and dressing removed, incision C/D/I with elvis and suture in place. Fracture blisters to lateral aspect well healed. Moderate edema and residual ecchymosis to foot. +f/e at MTPs. N/V intact. Calf soft, NT Assessment: POD #13 right ankle ORIF Plan: Pt placed in short leg, fiberglass cast today Cont NWB Recommend elevation on chair or in bed frequently to reduce swelling Tylenol/Ibuprofen as needed for pain Needs ankle xray today after casting Ortho to continue following
[2019-11-04] MEDS: Nicotine Patch Removal NOTE FOLLOW UP SCH (19:04)
[2019-11-04] MEDS: hydrOXYzine HCL TAB* 50 MG PO PRN (22:16)
[2019-11-05] MEDS: Aspirin TAB* 325 MG PO SCH (08:45)
[2019-11-05] MEDS: Acetaminophen TAB* 325 MG PO PRN ×2 (08:46→15:42)
[2019-11-05] MEDS: Vitamin THERAPEUTIC TAB PO SCH (08:46)
[2019-11-05] MEDS: Nicotine PATCH 14 MG/24 HR* PATCH TRANSDERM SCH (08:47)
[2019-11-05] MEDS: Docusate CAP* 100 MG PO SCH ×2 (08:47→20:23)
[2019-11-05] MEDS: Ibuprofen TAB* 600 MG PO PRN ×2 (12:17→22:06)
[2019-11-05] MEDS: oxyCODONE TAB* 5 MG TAB PO PRN (19:54)
[2019-11-05] MEDS: Nicotine Patch Removal NOTE FOLLOW UP SCH (20:23)
[2019-11-05] MEDS: hydrOXYzine HCL TAB* 50 MG PO PRN (22:06)
[2019-11-06] MEDS: Aspirin TAB* 325 MG PO SCH (10:03)
[2019-11-06] MEDS: Nicotine PATCH 14 MG/24 HR* PATCH TRANSDERM SCH (10:03)
[2019-11-06] MEDS: Docusate CAP* 100 MG PO SCH ×2 (10:03→20:40)
[2019-11-06] MEDS: Vitamin THERAPEUTIC TAB PO SCH (10:03)
--- NOTE | 2019-11-06 15:49 | PN ---
Subjective - Subjective Date of Service: 11/06/19 Service Type: 62842 Hosp care 25 min moderate complexity Subjective: Patient's father phoned and given update. He states he had a difficult conversation with Roni regarding paternity of 's . He told Roni that his expressed "it's not your baby, it's mine" because she is not expecting Roni to be involved. Holden states Roni was defensive and argumentative , causing Holden to also become angered and the phone call was ended abruptly by one of them. Upon approach, patient using computer in relaxation room. Throughout the conversation, he continues to surf the internet. He is dismissive of any responsibility for his behavior. He continues to relate that all of the charges of harrassment were "bullshit." He continues to relate that he does not need antipsychotics and that the side effects are intolerable, including sexual side effects. He is condescending and disrespectful, leaves the room abruptly. Objective - General Observations Appearance: Well Groomed Stature: Thin Posture: WNL Eye Contact: Avoidant Behavior/Activity: Agitated - Interaction Observations Attitude Towards Examiner: Defensive, Dismissive, Disrespectful Stated Mood: Irritable Affect: Restricted Speech Pattern/Tone: Pressured Thought Process: Circumstantial Perception: WNL Thought Content: Paranoid, Grandiose Thought Process: Lethality: Paranoid Ideation Hallucination Type: Denies Delusion Type: Persecution, Grandeur - Cognitive Function Orientation: A&O x 4 Level of Consciousness: Alert Cognition: Impaired Attention/Concentration Estimated Intelligence: Normal Insight: Mostly Blames Others for Problems, Difficulty Acknowledging Presence of Psyciatric Problems Judgment Within Normal Limits: No Ability to Make Reasonable Decisions: Moderately Impaired - Medication Compliance Cooperative with Inpatient Medication Regimen: Yes - Group Participation Participates in Group Activities: No Assessment - Assessment Merits Inpatient Hospitalization: For Immediate Safety, For Stabilization, Pending Safe DC Plan Inpatient DSM-V Dx: F20.0 Clinical Impression: 43yo wm with known history of schizophrenia and nonadherence to outpatient psychiatric treatment, who was living in [place] until filed OOP. Patient was brought to ED when family members called police due to concerns of his untreated mental illness. Two days prior, patient was seen in ED after sustaining a fall [place] thus fracturing an ankle fracture, requiring surgical intervention. Collateral information obtained denotes that may have been a suicide attempt. Patient was discharged to surgical services for R ankle ORIF on 10/22/19 then readmitted to [facility] on emergency status the same day. Patient merits hospitalization for immediate safety and stabilization. Treatment Over Objection granted by [facility] Flanagan on 10/30/19. Plan - Plan Treatment Plan: Name: IRAM QUIROS Birthdate: 1975 [id number] continue acute intensive psychiatric treatment. DC constant observation, decrease to q30min obs. may have staff pass and use computer per RN discretion. continue medications, as ordered. continue post-op directions per ortho- cast placed on 11/04/19. Invega Sustena 156mg, second booster dose on Saturday, November 01. discharge planning to include patient family and outpatient referrals in [place] Medications: Current Medications Acetaminophen (Tylenol Tab*) 975 mg PO Q6H PRN PRN Reason: for pain; or Temp >101 F Last Admin: 11/05/19 15:42 Dose: 975 mg Al Hydrox/Mg Hydrox/Simethicone (Maalox Plus*) 30 ml PO Q4H PRN PRN Reason: INDIGESTION Albuterol (Ventolin 2.5 Mg/3 Ml Neb.Melissa*) 2.5 mg INH Q6H PRN PRN Reason: SOB/WHEEZING Aspirin (Aspirin Tab*) 325 mg PO DAILY [facility] Last Admin: 11/06/19 10:03 Dose: Not Given Chlorpromazine HCl (Thorazine Tab*) 100 mg PO Q6H PRN PRN Reason: agitation/anxiety Docusate Sodium (Colace Cap*) 100 mg PO BID [facility] Last Admin: 11/06/19 10:03 Dose: Not Given Hydroxyzine HCl (Atarax Tab*) 50 mg PO Q4H PRN PRN Reason: anxiety Last Admin: 11/05/19 22:06 Dose: 50 mg Ibuprofen (Motrin Tab*) 600 mg PO Q4H PRN PRN Reason: PAIN - MILD Last Admin: 11/05/19 22:06 Dose: 600 mg Multivitamins (Theragran Tab*) 1 tab PO DAILY [facility] Last Admin: 11/06/19 10:03 Dose: Not Given Nicotine (Nicotine Patch 14 Mg/24 Hr*) 1 patch TRANSDERM DAILY [facility] Last Admin: 11/06/19 10:03 Dose: Not Given Nicotine Polacrilex (Nicotine Gum*) 2 mg PO Q2H PRN PRN Reason: CRAVING Oxycodone HCl (Roxycodone Tab*) 5 mg PO Q6H PRN PRN Reason: PAIN - SEVERE Last Admin: 11/05/19 19:54 Dose: 5 mg Pharmacy Profile Note (Nicotine Patch Removal Note*) 1 note FOLLOW UP 2100 MIGUEL Last Admin: 11/05/19 20:23 Dose: Not Given Polyethylene Glycol/Electrolytes (Miralax (17 Gm Dose Rajesh)) 17 gm PO DAILY PRN PRN Reason: CONSTIPATION Last Admin: 10/24/19 11:19 Dose: 17 gm - Discharge Plan Discharge Plan: Inpatient Hospitalization Outpatient Program: pending accepting agency in [place]
[2019-11-06] MEDS: oxyCODONE TAB* 5 MG TAB PO PRN (18:48)
[2019-11-06] MEDS: Ibuprofen TAB* 600 MG PO PRN (18:48)
[2019-11-06] MEDS: Nicotine Patch Removal NOTE FOLLOW UP SCH (20:53)
[2019-11-06] MEDS: hydrOXYzine HCL TAB* 50 MG PO PRN (21:10)
[2019-11-07] MEDS: Aspirin TAB* 325 MG PO SCH (08:33)
[2019-11-07] MEDS: Nicotine PATCH 14 MG/24 HR* PATCH TRANSDERM SCH (08:33)
[2019-11-07] MEDS: Docusate CAP* 100 MG PO SCH ×2 (08:33→20:40)
[2019-11-07] MEDS: Vitamin THERAPEUTIC TAB PO SCH (08:33)
[2019-11-07] MEDS: Acetaminophen TAB* 325 MG PO PRN ×2 (09:40→20:58)
[2019-11-07] MEDS: Ibuprofen TAB* 600 MG PO PRN (17:53)
[2019-11-07] MEDS: oxyCODONE TAB* 5 MG TAB PO PRN (17:54)
[2019-11-07] MEDS: hydrOXYzine HCL TAB* 50 MG PO PRN (20:39)
[2019-11-07] MEDS: Nicotine Patch Removal NOTE FOLLOW UP SCH (22:24)
[2019-11-08] MEDS: Vitamin THERAPEUTIC TAB PO SCH (08:54)
[2019-11-08] MEDS: Nicotine PATCH 14 MG/24 HR* PATCH TRANSDERM SCH (08:54)
[2019-11-08] MEDS: Docusate CAP* 100 MG PO SCH ×2 (08:54→21:30)
[2019-11-08] MEDS: Aspirin TAB* 325 MG PO SCH (08:54)
[2019-11-08] MEDS: Nicotine* 2MG (FRUIT FLAVOR) GUM PO PRN (14:48)
[2019-11-08] MEDS: hydrOXYzine HCL TAB* 50 MG PO PRN (14:48)
[2019-11-08] MEDS: Acetaminophen TAB* 325 MG PO PRN (18:59)
[2019-11-08] MEDS: Nicotine Patch Removal NOTE FOLLOW UP SCH (23:50)
[2019-11-09] MEDS: Acetaminophen TAB* 325 MG PO PRN (10:11)
[2019-11-09] MEDS: Vitamin THERAPEUTIC TAB PO SCH (10:12)
[2019-11-09] MEDS: Aspirin TAB* 325 MG PO SCH (10:14)
[2019-11-09] MEDS: Docusate CAP* 100 MG PO SCH ×2 (10:14→22:01)
[2019-11-09] MEDS: Nicotine PATCH 14 MG/24 HR* PATCH TRANSDERM SCH (10:15)
--- NOTE | 2019-11-09 11:03 | PN ---
Subjective - Subjective Date of Service: 11/09/19 Service Type: 85105 Hosp care 25 min moderate complexity Subjective: Phone conference with appeals writer, patient's father Holden, and Claudia Rossi LCSW. Notified of intake appt secured for 11/12/19 at [facility] in [facility] and availability of temporary housing through [facility] in the same town. oHlden reports he has been researching with Roni's mother. They identified a residential program in [facility], [facility], that bills to insurance. Surgical Garment Fitter spoke with Roni about the above. He signed ROIs for both MH agencies. He states preference to go to [place]. He reports his mood to be "good." He is slightly more receptive to conversation with appeals writer. He reports generalized weakness and is unsure of etiology. He assumes is may have to do with having to use crutches. Patient given education and demonstration of proper use of crutches. Objective - General Observations Appearance: Well Groomed Stature: Thin Posture: WNL Eye Contact: Avoidant Behavior/Activity: WNL - Interaction Observations Attitude Towards Examiner: Cooperative Stated Mood: Euthymic Affect: Restricted Speech Pattern/Tone: Clear, Appropriate, Normal Volume Thought Process: Coherent, Goal Directed Perception: WNL Thought Content: WNL Hallucination Type: Denies Delusion Type: Denies - Cognitive Function Orientation: A&O x 4 Level of Consciousness: Alert Cognition: WNL Estimated Intelligence: Normal Insight: Mostly Blames Others for Problems Judgment Within Normal Limits: No Ability to Make Reasonable Decisions: Moderately Impaired - Medication Compliance Cooperative with Inpatient Medication Regimen: Yes - Group Participation Participates in Group Activities: No Assessment - Assessment Merits Inpatient Hospitalization: For Immediate Safety, Pending Safe DC Plan Inpatient DSM-V Dx: F20.0 Clinical Impression: 43yo wm with known history of schizophrenia and nonadherence to outpatient psychiatric treatment, who was living in [place] until filed OOP. Patient was brought to ED when family members called police due to concerns of his untreated mental illness. Two days prior, patient was seen in ED after sustaining a fall [place] thus fracturing an ankle fracture, requiring surgical intervention. Collateral information obtained denotes that may have been a suicide attempt. Patient was discharged to surgical services for R ankle ORIF on 10/22/19 then readmitted to [facility] on emergency status the same day. Patient merits hospitalization for immediate safety and stabilization. Treatment Over Objection granted by [facility] Judge Flanagan on 10/30/19. Plan - Plan Treatment Plan: Name: IRAM QUIROS Birthdate: 1975 [id number] continue acute intensive psychiatric treatment. DC constant observation, decrease to q30min obs. may have staff pass and use computer per RN discretion. continue medications, as ordered. continue post-op directions per ortho- cast placed on 11/04/19. Invega Sustena 156mg, second booster dose on Saturday, November 01. discharge planning to include patient family and outpatient referrals in [place] Medications: Current Medications Acetaminophen (Tylenol Tab*) 975 mg PO Q6H PRN PRN Reason: for pain; or Temp >101 F Last Admin: 11/09/19 10:11 Dose: 975 mg Al Hydrox/Mg Hydrox/Simethicone (Maalox Plus*) 30 ml PO Q4H PRN PRN Reason: INDIGESTION Albuterol (Ventolin 2.5 Mg/3 Ml Neb.Melissa*) 2.5 mg INH Q6H PRN PRN Reason: SOB/WHEEZING Aspirin (Aspirin Tab*) 325 mg PO DAILY [facility] Last Admin: 11/09/19 10:14 Dose: Not Given Chlorpromazine HCl (Thorazine Tab*) 100 mg PO Q6H PRN PRN Reason: agitation/anxiety Docusate Sodium (Colace Cap*) 100 mg PO BID [facility] Last Admin: 11/09/19 10:14 Dose: Not Given Hydroxyzine HCl (Atarax Tab*) 50 mg PO Q4H PRN PRN Reason: anxiety Last Admin: 11/08/19 14:48 Dose: 50 mg Ibuprofen (Motrin Tab*) 600 mg PO Q4H PRN PRN Reason: PAIN - MILD Last Admin: 11/07/19 17:53 Dose: 600 mg Multivitamins (Theragran Tab*) 1 tab PO DAILY [facility] Last Admin: 11/09/19 10:12 Dose: 1 tab Nicotine (Nicotine Patch 14 Mg/24 Hr*) 1 patch TRANSDERM DAILY [facility] Last Admin: 11/09/19 10:15 Dose: Not Given Nicotine Polacrilex (Nicotine Gum*) 2 mg PO Q2H PRN PRN Reason: CRAVING Last Admin: 11/08/19 14:48 Dose: 2 mg Oxycodone HCl (Roxycodone Tab*) 5 mg PO Q6H PRN PRN Reason: PAIN - SEVERE Last Admin: 11/07/19 17:54 Dose: 5 mg Pharmacy Profile Note (Nicotine Patch Removal Note*) 1 note FOLLOW UP 2100 MIGUEL Last Admin: 11/08/19 23:50 Dose: Not Given Polyethylene Glycol/Electrolytes (Miralax (17 Gm Dose Rajesh)) 17 gm PO DAILY PRN PRN Reason: CONSTIPATION Last Admin: 10/24/19 11:19 Dose: 17 gm - Discharge Plan Discharge Plan: Inpatient Hospitalization Outpatient Program: [facility]
[2019-11-09] MEDS: oxyCODONE TAB* 5 MG TAB PO PRN (14:04)
[2019-11-09] MEDS: Nicotine Patch Removal NOTE FOLLOW UP SCH (22:01)
[2019-11-10] MEDS: Vitamin THERAPEUTIC TAB PO SCH (08:45)
[2019-11-10] MEDS: Nicotine PATCH 14 MG/24 HR* PATCH TRANSDERM SCH (08:46)
[2019-11-10] MEDS: Aspirin TAB* 325 MG PO SCH (08:46)
[2019-11-10] MEDS: Docusate CAP* 100 MG PO SCH ×2 (08:46→22:28)
[2019-11-10] MEDS: Nicotine* 2MG (FRUIT FLAVOR) GUM PO PRN (17:45)
[2019-11-10] MEDS: Acetaminophen TAB* 325 MG PO PRN (18:56)
[2019-11-10 19:06] LABS: Hematocrit 37 % (42-52); Mean Corpuscular HGB Conc 35 g/dL (31-36); Mean Corpuscular Hemoglobin 32 pg (27-31); Mean Corpuscular Volume 92 fL (80-94); Mean Platelet Volume 8.9 fL (7.4-10.4); Platelet Count 228 10^3/uL (150-450); Red Blood Count 4.04 10^6 /uL (4.18-5.48); Red Cell Distribution Width 13 % (10-15); White Blood Count 6.4 10^3/uL (3.5-10.8)
[2019-11-10 19:20] LABS: Albumin 4.1 g/dL (3.2-5.2); Albumin/Globulin Ratio 1.6 (1-3); BUN/Creatinine Ratio 16.8 (8-20); Calcium 9.1 mg/dL (8.6-10.3); EGFR African American 98.5 (>60); EGFR Non-African American 81.4 (>60); Globulin 2.5 g/dL (2-4); Potassium 3.8 mmol/L (3.5-5.0); Total Bilirubin 0.7 mg/dL (0.2-1.0); Total Protein 6.6 g/dL (6.4-8.9)
[2019-11-10] MEDS: oxyCODONE TAB* 5 MG TAB PO PRN (22:26)
[2019-11-10] MEDS: Ibuprofen TAB* 600 MG PO PRN (22:26)
[2019-11-10] MEDS: Nicotine Patch Removal NOTE FOLLOW UP SCH (22:29)
[2019-11-11 08:39] VITALS: BP 120/68
[2019-11-11] MEDS: Docusate CAP* 100 MG PO SCH (08:54)
[2019-11-11] MEDS: Nicotine PATCH 14 MG/24 HR* PATCH TRANSDERM SCH (08:54)
[2019-11-11] MEDS: Aspirin TAB* 325 MG PO SCH (08:54)
[2019-11-11] MEDS: Vitamin THERAPEUTIC TAB PO SCH (08:54)
--- NOTE | 2019-11-11 10:01 | PN ---
Progress Note - Progress Note Date of Service: 11/11/19 Note: Ortho follow up: Patient will be in [place], [place] after discharge. Please follow up in [address] Benjamin Grant at [place]. Call [phone] for an appointment.
[2019-11-11] MEDS: Nicotine* 2MG (FRUIT FLAVOR) GUM PO PRN (11:19)
[2019-11-11] MEDS: oxyCODONE TAB* 5 MG TAB PO PRN (12:11)
[2019-11-11] MEDS: Ibuprofen TAB* 600 MG PO PRN (12:11)
--- NOTE | 2019-11-13 16:55 | DS ---
CC: Dr. Benjamin Grant, [facility]; [facility], [place], [place] DISCHARGE SUMMARY: DATE OF ADMISSION: 10/17/19 DATE OF DISCHARGE: 11/11/19 SUPERVISING PSYCHIATRIST: Dr. Albert Gómez. DISCHARGE DIAGNOSES: 1. Paranoid schizophrenia. 2. Status post surgical repair of right pilon fracture. CONDITION AT THE TIME OF DISCHARGE: Improved. The patient went to [facility] and was ord ered treatment over objection by membership counselor Alan Flanagan. The patient has since received both Invega Sust alejandro booster injections. He has agreed to be referred to a residential treatment program in [place], [place]. His father was involved in discharge planning and coordinated a water tanker driver ser vice for the patient's transportation to [facility] in [place], [place]. T he patient is discharged to home, residential treatment center [facility] in [facility]. MENTAL STATUS EXAM: Jeison is adequately groomed, casually dressed in his own clothing. He seems to be in good spirits as demonstrated by interactions with self and others. He is alert and oriented x 3. Eye contact is fair. Speech is soft, articulate, and spontaneous. Concentration good. Memory 3 /3. Mood is euthymic with full range of affect. No abnormal psychomotor activity noted. Thought pr ocess is logical, goal directed, and coherent. He denies suicidal ideation, homicidal ideation, or p assive wish. He denies auditory or visual hallucinations. It appears that his delusional thou ght content has improved over the course of the hospitalization. Insight and judgment are fair, impr claire. He appears to have an average intellect and his fund of knowledge is excellent. INSTRUCTIONS GIVEN TO THE PATIENT: A. Medications: 1. Aspirin 325 mg p.o. daily. 2. Docusate 100 mg p.o. b.i.d. 3. Hydroxyzine 50 mg p.o. t.i.d. p.r.n. anxiety. 4. Ibuprofen 600 mg p.o. q.4 hours p.r.n. mild pain. 5. Oxycodone 5 mg p.o. b.i.d. p.r.n. severe pain. 6. Paliperidone Sustenna 156 mg IM q.4 weeks, next due on 11/30/19. 7. MiraLAX 17 g p.o. daily p.r.n. constipation. 8. Multivitamin 1 tab p.o. daily. B. Diet: Regular. C. Activity: Ambulation as tolerated, with nonweightbearing on the right leg. Tobacco cessation was declined by the patient. There are no pending labs or diagnostic studies. D. Followup care: The patient was referred to [facility] for residential treatm ent and transitional services. He was also referred to Dr. Benjamin Grant at [facility] in 3 w eesc for cast removal and re-x-ray. E. Substance use followup: The patient refused substance use treatment referrals. HOSPITAL COURSE: Part A: Chief complaint: "I called my brother and told him I'm going to out he re." Jeison is a 43-year-old male, from his , homeless and unemployed, who was bro ught in by emergency services from the community after his brother in [place] contacted 911 to report concerns about the patient's safety. He was admitted on emergency status for safety, observat ion, evaluation, and treatment. HPI: The patient explains that he has been homeless since he was last discharged from a hospital in [place], [place] and then spent some time couchsurfing in [place] and last Saturday he ilene ve to [place] on a whim because he attended [place] [employer] for approximately 2 years in the past. He did not have a place to stay. He had little access to food and did not have access to bathroom. On night, while he was reportedly defecating in a [place], he fell from a height and he broke his ankle and sustained bruises to his hip and shoulders. He came to this hospital where he was diagnos ed with a comminuted fracture of the distal anterior tibia with articular extension with questionable avulsion fracture of the dorsal talus. He was discharged Saturday morning with a prescription for Percocet that he did not fill because of not having money or insurance. He reached out to his brothe ivett in [place] on 10/17/19 and told him he was in [place], living in his car, he was cold, he did not have food or money and that he was afraid he was going to . His brother alerted local emergen cy services, who located him near [facility] and drove him to the emergency room of this hospital . Collateral information obtained from his father, Holden, who lives in [place]. The patient has a judith gnosis of paranoid schizophrenia and has not been compliant with taking prescribed medicines for the past 5 to 6 months and he has decompensated considerably. The father added that he was initially judith gnosed in his 20s when he swallowed a gallon-sized bag of nuts, bolts and glass and he "barely surviv ed." The father expressed concern that he will try to kill himself or do something dangerous because his judgment is so impaired. The father added that he has had multiple psychiatric hospitalizations primarily in [place]. Collateral information obtained from a psychiatrist, Dr. Yvonne Oglesby, who is not his treating physicia n, but a friend of his family. She offered that he was most recently on Invega Sustenna which was he lpful, but he did not do well as he did on Clozaril. She says the patient has a history of being hyp erreligious, that his has a restraining order against him because he threatened to kill her and grab her by the neck. The is . The patient recently stayed with a friend in [facility], who locked himself in his room due to fear of the patient's behavior. Dr. Oglesby added that he is very bright and masterful at covering up his symptoms. The patient's presentation was consistent with collateral information. He denied auditory or visual hallucinations. He verbalized ideas of reference, paranoid and persecutory delusions, stating "I'm a Tenriism, I had to leave [place] because the [facility] was after me." "My father is trying to control my life, he will not help me unless I take medications." On 10/19/19, this software writer spoke with Dr. Harkins regarding orthopedic consult. The patient completed CT scan and he is indicated for surgical repair likely 10/22/19 after edema is improved. The patien t was notified of the above. He reported testicular pain and "orange urine." Urinalysis within norm al limits with the exception of positive urobilinogen. The patient's father, Holden Chowdary, phoned from [place] to give collateral. This was much similar to information he had given to the admitting psychiatrist. He did report that Roni called a friend last week and told him he was going to jump into a gorge. Supervisor [employer] updated him on the patient's physical i njuries and plan of care. During conversation with the patient, he blames family members for all of his troubles. He speaks of them with derogatory names and states they "sent me to my grave." He states his is wi th someone else's baby and he blames her entirely for having an order of protection against him. He goes on to describe the untoward effects of medications. He states that psychiatric medications affe cted his ability to breathe and he had to choke himself to remind himself to breathe. He complains of decreased testosterone and turning his bones brittle causing fractures without injuries. He attribu tobias his symptoms of mental illness to "the cloud from [place] over me for 2 months" when living i [facility] on 04/08/01. He states that clozapine "destroyed my circadian rhythm" and he was doi ng very well for 10 years on alternative therapies. We added risperidone 1 mg p.r.n. agitation. The patient was resistant to taking medications other than those for his orthopedic diagnosis. On 10/20/19, per Ortho recommendations, software writer consulted with neurosurgeon, Dr. Huerta. No surgi carlos intervention is necessary. The patient may follow up with Sports Medicine in outpatient setting. Supervisor [employer] received message from the patient's father, Holden Chowdary, and returned his call. Mr. Chowdary ex pressed concerns about the patient being discharged without psychiatric stabilization. We discussed plan of care the next few days and the potential for pursuing treatment over objection. He reported feeling much relieved after discussion. We will continue with daily updates. The patient was noted to ambulate about the unit, nonweightbearing on the left foot, wearing Cam boot and utilizing crutches. At the time of interview, the patient is lying in bed with legs elevated. Upon presentation, the patient states "I'm glad you came in, I was just starting to panic." He state s he is frustrated about lack of human contact because everyone he has called in the last 6 weeks is not returning his calls. He speaks of various topics, places he has lived, disdain for [employer], and desire to live on his own private [place], after which he jokingly tells software writer "you're not inv ited." The patient goes on to blame his mother and for sabotaging him and ruining his life. I gently inquired about him being overheard being verbally aggressive to his mother on the phone. He r ants for some time about she and his needing to know why he is so angry with them. He also state s that his father is not returning his calls. We discussed that his father is worried and afraid to talk to him when he is speaking angrily to everyone. We added laxative and stool softener. The tianna ent was encouraged to utilize RICE, ibuprofen, and Percocet for pain. On 10/21/19, the patient is lying in bed with right leg elevated and ice pack in place. He reports b eing encouraged by ortho team to remain off of the leg and keep elevated as much as possible to prepa re for surgical repair tomorrow. The patient was pleasant upon approach, euthymic with bright affect . He states he had a good conversation with his father via phone. He states "I wish I had a home" i n a jovial manner. He agrees to postpone discharge planning until after surgery. On 10/22/19, the patient was discharged to surgical services to complete ORIF of the right ankle with the expectation he will be readmitted to behavioral services unit on 9.39 status after completion of surgery. The patient was discharged to surgical services. At the time of discharge to Surgery, the patient remained adamantly opposed to psychiatric medications and endorsed various delusions about m edication treatment history as well as impaired insight into psychiatric diagnosis. The patient's cu rrent insurance is [employer] of [place]; therefore, any services in [place] are not covered unless it is an emergency. The patient was notified of the above and recommendations to remain hospitalized on involuntary status until outpatient services can be arranged post surgery and post psychiatric hospi talization. We have been in contact with his father per the patient's consent, who is very concerned about his treatment. The patient has recent history of a brief psychiatric hospitalization in [place], [place], I believe. He was admitted for a 72-hour hold and discharged when he was readmitt ed to [facility] at the beginning of this month. He presented well in a hearing and was deemed approp riate for discharge by the local court. We discussed at length the process of involuntary admission in this state and pursuing treatment over objection to which the father is in agreement with. During conversation with the patient, he is calm and cooperative especially when discussing current medical recommendations. When we discussed his psychiatric history, he is quickly defensive, irritable, and has much derogatory statements about his family and for sabotaging him and ruining his life. He is overheard being verbally aggressive to his mother on the phone. He rants for some time that his mother and are needing to know why he is so angry with them. He has poor insight into his psych iatric history. He denies previous suicide attempts that have been well-documented. He reports that various things have caused mental instability, including the mercury clouds from the [place] aft er 04/08/01. The night before surgery, the patient was agitated, demanding to be discharged and this was after we had already discussed that it was in his best interest for him to remain psychiatricall y hospitalized not only for safety, but for healthcare coverage. On the morning prior to discharging to Surgery, he was irritable, agitated, and balking at going to surgery. He demanded to be discharg ed after surgery. Due to his recent history, it is imperative that he returns to the behavioral serv ices unit on involuntary status for his own safety. The patient completed brief surgical repair and was stabilized and returned to the mental health unit on the same day. He was alert and oriented, complains of pain, but otherwise cooperative. We discu ssed the need for involuntary hospitalization. The patient was ordered to have risperidone 1 mg b.i.d . and was afforded pain medicine and constipation prophylaxis. He is refusing psychiatric medication s, citing bizarre side effects such as risperidone causing his bones to be fragile and his testicles to drop. On 10/23/19, software writer returned a call to the patient's father and gave an update on postop and psychiat seun treatment plan. The patient is adhering to postop directions of nonweightbearing on right lower extremity with use of crutches to ambulate and is utilizing the p.r.n. medications for pain. He refused risperidone, citi ng it causes "low testosterone for him." He has been guarded in regards to communication with his mo ther and expressing psychotic symptomatology. The patient was avoidant of software writer upon approach. We converted the patient to 2PC status and pursued treatment over objection. On 10/26/19, the patient r efused to participate in psychological testing (MMPI or Rorschach). He states he "gave 18 years" to the field of psychiatry and does not need to have further psychiatric treatment. Supervisor [employer] and social heidi diaz met with the patient. The patient is lying in bed with legs elevated upon approach. He is ini tially calm and pleasant. He requests increased doses of ibuprofen and acetaminophen due to desire t o decrease use of opioid pain medications. He states he is waiting for instructions in regards to po stoperative care. He states he does not have a plan of where to live and is thinking about staying i n a hotel locally. Super[employer] reminds him that insurance coverage indicates he must return to [place] . He states he would prefer treatment team providers speak about discharge planning with his father. I inquired where he will want to receive mental health services. He goes on to blame the field of ps ychiatry and neuroleptics for worsening his physical condition. When asked about conversation he had with staff in regards to demons, the patient was more irritable and defensive. He encouraged us to "read the book" and ranted about the spiritual world. He left the room citing desire to eat lunch. On 10/27/19, per staff, the patient makes bizarre and threatening statements. He has been in poor be havioral control and is often irritable with intense gaze. The patient reports need to discuss 5 things, otherwise he may need to be treated at a different hosp ital. He expresses painful urination, that his penis turns purple as if he is not getting enough blo od flow due to the S3 injury. He states concern that he may contracted an STI from "sharing cigarett es with homeless people." He denies recent sexual activity. He agrees to STI testing. The rest of his concerns are related to injuries sustained during a fall in [place]. He is receptive to my explana tions. He is notified of [facility] pursuing treatment over objection. He is irritable and demanding to kn ow basis of decision. Supervisor [employer] attempts to explain, but is met with agitation. He states "you all don 't deserve life, I hope the coronavirus kills you all" and leaves the room. The patient asked to spe ak with software writer again. He asks the rationale, but rebuts any given. He denies aggression towards his and states that the hearing was "thrown out of court." Supervisor [employer] reiterated that [facility] is pursuing treatment over objection due to his inability to care for self and aggression towards others includin g verbal aggression and delusional thinking observed while hospitalized. Super[employer] returned call to his father. He states he has been having very difficult phone calls from Roni wherein Roni rants angry di alogue. We discussed that Roni minimizes his behavior and denies being aggressive or making suicidal gestures. Holden clarifies that in the order of protection hearing, Roni's was not called to tobias webber. Roni was irate and yelling for approximately 5 minutes until the membership counselor interrupted him and gran harpal the order of protection. The patient was placed on constant observation status after surgical re pair due to need to wear Beau bandage. This was decreased to constant observation while in room. On 10/29/19, the patient's care was transferred to Dr. Albert Gómez due to treatment over objection process. The patient presented to Dr. Gómez with pressured speech, paranoid, and hyperverbal, compl aining that his family, his , and his friend in [place] with whom he was briefly staying 1 mo nth ago are all against him and lying to get him psychiatrically hospitalized. The patient was given a copy of his medication request sheet for court tomorrow and objects to all antipsychotics stating that "that stuff all lowered my testosterone to almost nothing and made my muscles and bones brittle. " He has no insight into his illness. He has no coherent plan for how he would take care of himself if allowed to leave the hospital without further treatment. On 10/30/19, Jeison participated appropriately in treatment over objection court hearing, which was p erformed electronically due to the COVID pandemic. He remains paranoid with limited insight and obje cted to the inclusion of clozapine on his med list; however, he did accede to initiating paliperidone Sustenna 234 mg IM yesterday afternoon and states his willingness to take 156 mg dose on Saturday, 01/15. The case was decided in the hospital's favor and Mr. Chowdary remained in behavioral control thr [facility]. On 11/02/19, the patient was notified of plan for ortho team to cast his foot on 11/05/19. Super[employer] ex pressed hope that he will be stable for discharge pending transition to outpatient services covered b y insurance. The patient was irritable and did not make eye contact with this software writer. He states he wants to go home to live with his or live with a friend in [place]; however, neither of thes e are viable options. He goes on to discuss side effects of Invega such as heart palpitations and de creased bone density. On 11/04/19, Ortho placed a hard cast on the right foot this morning. Constant observation was disco ntinued as there was no ligature risk without an Beau bandage. The patient was primarily seclusive exc ept for meals. He continues to inquire as to why he cannot go home to live with his . When enoch nded of OOP, he denies history of aggressiveness. He reports desire to explore discharge planning in [place] or [place]. turn down worker notified him of potential options in [place]. Th e patient expressed that he did not want to go to [facility] as they are "terrible neighborhoods" and desc ribes them as low-socioeconomic areas. Phone conference with father; Claudia Rossi LCSW; and myself, Mildred Miner NP, Holden expressbreana d concern about the patient being discharged too soon. Supervisor [employer] and Claudia explained process and edith lisseth to begin search while the patient is responding to long-acting injection. Holden reports conside ring financially supporting Roni and utilizing private agencies with the expectation that Roni is compl iant with treatment. On 11/06/19, the patient's father phoned and was given an updated. He states he had a difficult conv ersation with Roni regarding paternity of 's . He told Roni that his expressed "it's not your baby, it's mine" because she is not expecting Roni to be involved. Holden states that Roni w as defensive and argumentative causing Holden to also become angered and the phone call was ended abr uptly by one of them. Upon approach, the patient is using computer in relaxation room. Throughout the conversation, he con tinues to surf the internet. He is dismissive of any responsibility for his behavior. He continues to relate that all of the charges of harassment were "bullshit." He continues to relate that he does not need antipsychotics and that the side effects are intolerable including sexual side effects. He is condescending and disrespectful and leaves the room abruptly. On 11/09/19, phone conference with software writer; the patient's father, Holden; and Claudia Rossi [facility], notified of intake appointment secured for 12/02/19 at the [facility] in [place], [place] and availability of temporary housing through [facility] in the same town. Holden reports he has bee n researching with Roni's mother. They identified a residential program in [place], [place] alina t bills to insurance. Supervisor [employer] spoke with Roni about the above. He signed ROIs for both mental health agencies. He states preference to go to [place]. He reports his mood to be good. He is slightly more receptive to conversation with software writer. He reports generalized weakness and is unsure of etiolog y. He assumes that may have to do with having to use crutches. The patient was given education and demonstration of proper use of crutches. The patient and father agreed to discharge plan of the tianna ent going to [facility] in [place], [place]. His father identified a [employer] service t hat could transport Roni from [facility] [place], [place]. dental insurance coordinator confirmed that Shireen toussaint will receive both medication management and therapeutic services within the facility. We did labs the day prior to discharge. He was noted to have a low RBC as well as H and H. He was encouraged to increase iron intake and to utilize multivitamin. He was noted to have slightly elevated liver enzy mes and recommended to avoid utilizing acetaminophen and instead use ibuprofen for pain and swelling. The patient's STD testing was negative. Testosterone level was within normal limits. The patient was given copies of laboratory data as well as radiology reports. The patient was agreeable with dis charge plan. He was pleasant and somewhat appreciative of efforts. We hope that the patient continu es with mental health treatment. Otherwise, he is at great risk for harm to self and others. At the time of discharge, risk was lessened due to stabilization in the hospital setting. MILDRED MINER NP [id number]/[facility] #: [id number]
== END 2019-11-11 13:05 | disposition home or self-care (01) | DRG 750 ==
LOC: BSU 13:29
PROVIDERS: ADMIT Nurse Practitioner Psychiatric/Mental Health; ATTEND Nurse Practitioner Psychiatric/Mental Health
DX: F20.0 Paranoid schizophrenia (principal); F17.210 Nicotine dependence, cigarettes, uncomplicated; K59.00 Constipation, unspecified; F12.90 Cannabis use, unspecified, uncomplicated; W19.XXXD Unspecified fall, subsequent encounter; Z91.19 Patient's noncompliance with other medical treatment and regimen; Z79.899 Other long term (current) drug therapy; Z79.82 Long term (current) use of aspirin; S82.871D Displaced pilon fracture of right tibia, subsequent encounter for closed fracture with routine healing; Z91.5 Personal history of self-harm; Z56.0 Unemployment, unspecified; Z59.0 Homelessness
CPT/HCPCS: 36415; 80053; 80061; 80074; 83036; 84146; 84403; 85027; 86780; 87491; 87591; 93005; 99222; 99231; 99232; 99233; 99238; A9270-GY